=== PATIENT | female | born 1980 | race Caucasian/White ===

== ENCOUNTER → 2019-08-18 08:57 | Outpatient (POV) | payer SELFPAY | PROVIDERS: Visit Provider Dentist | DX: Z00.00 Encounter for general adult medical examination without abnormal findings (principal) ==

== ENCOUNTER → 2020-10-23 16:38 | Outpatient (CLI) | payer BC, SELFPAY ==
[2020-10-23 17:33] LABS: Alanine Aminotransferase 312 U/L (12-78); Albumin Level 4.1 g/dl (3.5-5.0); Albumin/Globulin Ratio 1.4 (1.1-1.8); Alkaline Phosphatase 219 U/L (38-126); Anion Gap 12.9 mEq/L (5-15); Aspartate Amino Transferase 303 U/L (14-36); Bilirubin,Total 0.5 mg/dl (0.2-1.3); Blood Urea Nitrogen 9 mg/dl (7-17); Calcium 10.4 mg/dl (8.4-10.2); Carbon Dioxide 32 mmol/L (22.0-30.0); Chloride 94 mmol/L (98-107); Chol/HDL Ratio 5.9 (1-3.5); Cholesterol 248 mg/dl (140-200); Estimated Glomerular Filt Rate 177 ml/min (>60); GFR (African American) 214 ML/MIN (>60); Glucose 283 mg/dl (74-100); HDL Cholesterol 42 mg/dl (40-60); Potassium 4.9 mmoL/L (3.5-5.1); Sodium 134 mmol/L (136-145); Total Protein,Serum 7.1 g/dl (6.3-8.2); Triglycerides 199 mg/dl (30-150); VLDL Cholesterol 40 mg/dL (0-40)
[2020-10-23 17:44] LABS: Direct LDL Cholesterol 183.41 mg/dL (100-129)
== END ==
PROVIDERS: Visit Provider Family Medicine
DX: K85.90 Acute pancreatitis without necrosis or infection, unspecified (principal)
CPT/HCPCS: 80053; 80061

== ENCOUNTER → 2020-12-03 13:33 | Outpatient (CLI) | payer BC, SELFPAY ==
[2020-12-03 15:53] LABS: Chloride 98 mmol/L (98-107); Potassium 4.6 mmoL/L (3.5-5.1); Sodium 134 mmol/L (136-145)
[2020-12-03 15:56] LABS: Alanine Aminotransferase 75 U/L (12-78); Albumin Level 3.7 g/dl (3.5-5.0); Albumin/Globulin Ratio 1.1 (1.1-1.8); Alkaline Phosphatase 193 U/L (38-126); Anion Gap 11.6 mEq/L (5-15); Aspartate Amino Transferase 181 U/L (14-36); Bilirubin,Total 0.4 mg/dl (0.2-1.3); Blood Urea Nitrogen 10 mg/dl (7-17); Calcium 9.9 mg/dl (8.4-10.2); Carbon Dioxide 29 mmol/L (22.0-30.0); Estimated Glomerular Filt Rate 137 ml/min (>60); GFR (African American) 165 ML/MIN (>60); Globulin 3.5 g/dL (1.3-3.2); Glucose 196 mg/dl (74-100); Total Protein,Serum 7.2 g/dl (6.3-8.2)
== END ==
PROVIDERS: Visit Provider Family Medicine
DX: R79.89 Other specified abnormal findings of blood chemistry (principal)
CPT/HCPCS: 80053

== ENCOUNTER → 2021-04-16 18:21 | Outpatient (CLI) | payer BC, SELFPAY ==
[2021-04-16 19:01] LABS: Chloride 102 mmol/L (98-107)
[2021-04-16 19:02] LABS: Potassium 4.6 mmoL/L (3.5-5.1); Sodium 139 mmol/L (136-145)
[2021-04-16 19:04] LABS: Alanine Aminotransferase 240 U/L (12-78); Aspartate Amino Transferase 688 U/L (14-36); Blood Urea Nitrogen 2 mg/dl (7-17); Estimated Glomerular Filt Rate 137 ml/min (>60); GFR (African American) 165 ML/MIN (>60)
[2021-04-16 19:05] LABS: Albumin Level 4.5 g/dl (3.5-5.0); Albumin/Globulin Ratio 1.3 (1.1-1.8); Alkaline Phosphatase 171 U/L (38-126); Anion Gap 16.6 mEq/L (5-15); Bilirubin,Total 0.7 mg/dl (0.2-1.3); Calcium 8.8 mg/dl (8.4-10.2); Carbon Dioxide 25 mmol/L (22.0-30.0); Globulin 3.4 g/dL (1.3-3.2); Glucose 177 mg/dl (74-100); Total Protein,Serum 7.9 g/dl (6.3-8.2)
== END ==
PROVIDERS: Visit Provider Family Medicine
DX: M79.7 Fibromyalgia (principal)
CPT/HCPCS: 80053

== ENCOUNTER → 2021-04-26 17:34 | Outpatient (CLI) | payer BC, SELFPAY ==
[2021-04-26 18:25] LABS: Basophils # 0.1 K/mm3 (0-0.2); Basophils % 0.7 % (0.1-2.0); Eosinophils # 0.2 K/mm3 (0.0-0.4); Eosinophils % 2.4 % (0.1-12.0); Hematocrit 40.9 % (37.0-47.0); Hemoglobin 13.7 g/dL (12.2-16.2); Lymphocytes # 1.8 K/mm3 (0.7-4.5); Lymphocytes % 24.8 % (10-50); Mean Corpuscular HGB Conc 33.4 g/dL (31.8-35.4); Mean Corpuscular Hemoglobin 34.1 pg (27.0-31.2); Mean Corpuscular Volume 102.1 fl (81-99); Mean Platelet Volume 11.9 fl (7.4-10.4); Monocytes # 0.7 K/mm3 (0.1-1.0); Monocytes % 10.2 % (1.7-9.3); Neutrophils # 4.5 K/mm3 (1.8-7.8); Neutrophils % 61.9 % (37.0-80.0); Platelet Count 134 K/mm3 (142-424); Red Blood Count 4.01 M/mm3 (4.20-5.40); Red Cell Distribution Width 14.2 % (11.5-17.5); White Blood Count 7.2 K/mm3 (4.8-10.8)
[2021-04-26 18:54] LABS: Alanine Aminotransferase 113 U/L (12-78); Albumin/Globulin Ratio 1.3 (1.1-1.8); Alkaline Phosphatase 119 U/L (38-126); Anion Gap 15.3 mEq/L (5-15); Aspartate Amino Transferase 221 U/L (14-36); Bilirubin,Total 1.1 mg/dl (0.2-1.3); Blood Urea Nitrogen 2 mg/dl (7-17); Calcium 9.3 mg/dl (8.4-10.2); Carbon Dioxide 23 mmol/L (22.0-30.0); Chloride 98 mmol/L (98-107); Estimated Glomerular Filt Rate 137 ml/min (>60); GFR (African American) 165 ML/MIN (>60); Glucose 111 mg/dl (74-100); Potassium 4.3 mmoL/L (3.5-5.1); Sodium 132 mmol/L (136-145)
[2021-04-26 19:43] LABS: Vitamin B12 981 pg/mL (239-931)
[2021-04-26 20:30] LABS: Iron 103 ug/dL (37-170)
[2021-04-28 12:47] LABS: Hep A Ab, IgM Negative (Negative); Hepatitis B Core Antibody IgM Negative (Negative); Hepatitis B Surface Antigen Negative (Negative); Hepatitis C Antibody <0.1 s/co ratio (0.0-0.9)
== END ==
PROVIDERS: Visit Provider Family Medicine
DX: K75.81 Nonalcoholic steatohepatitis (NASH) (principal); I10 Essential (primary) hypertension; E66.9 Obesity, unspecified; Z68.31 Body mass index [BMI] 31.0-31.9, adult
CPT/HCPCS: 80053; 80074; 82607; 83540; 85025

== ENCOUNTER 2021-06-10 13:03 | Emergency (ER) | payer BC, SELFPAY ==
[2021-06-10 13:04] VITALS: BP 120/80; PULSE 68; RESP 18; TEMP 37; O2SAT 100; BMI 32.0
--- NOTE | 2021-06-10 13:50 | CT_ITS ---
PROCEDURE: CT FACIAL BONES W CON CLINICAL HISTORY: facial abscess Left upper tooth abscess, severe pain COMPARISON: No exams were available for comparison TECHNIQUE: Axial images obtained with sagittal and coronal reformats. All CT scans at the facility use one or more dose reduction, viz: automated exposure control, ma/kV adjustment per patient size (including targeted exams where dose is matched to indication, i.e. head), or iterative reconstruction technique. FINDINGS: Extensive artifact is present from patient's dental work. Soft tissue swelling is present along the left maxillary region. There is a small fluid collection with small peripheral rim just superficial to the lower aspect of the left maxilla anterior laterally. Fluid collection measures 17 x 14 mm and a 7 mm thick consistent with an abscess. There is a small periapical abscess at this area involving a left maxillary premolar. In addition there is a large caries involving the left maxillary 1st molar. There is mucosal thickening involving the maxillary sinus on the left which is mild in nature. No sinus air-fluid level apparent. Scattered small nodes are present in the neck. IMPRESSION: Left-sided facial abscess in the maxillary region. The abscess is just superficial to the bone. There does not appear to be any osteomyelitis. There is a small periapical abscess involving the left premolar and a prominent caries involving the left 1st molar at this area. Dictated by: John Whyte MD 06/10/2021 15:08 John Whyte MD in [place] 06/10/2021 15:08
--- NOTE | 2021-06-10 13:58 | HMH.EDGENADL ---
ED Disposition Clinical Impression: Periapical abscess Disposition: Home, Self-Care Condition on Discharge: Good Additional Instructions: Take Tylenol and ibuprofen as needed for pain relief and fever reduction Please take antibiotics as prescribed If you develop a fever, worsening pain, redness to the skin over the cheek or up towards your eye please return to the ED immediately for further evaluation Please call [phone] to schedule outpatient follow up with Dr. Lance Arguello for further dental work Prescriptions: Amoxicillin/Potassium Clav [Augmentin 875-125 Tablet] 1 tab PO Q12H 7 Days #14 tab Prescription Printed Sulfamethoxazole/Trimethoprim [Bactrim DS tablet] 1 each PO BID 7 Days #14 tab Prescription Printed Oxycodone HCl [Oxycodone 5mg tab (IR)] 5 mg PO Q6H PRN #3 tab PRN Reason: Moderate To Severe Pain Prescription Printed Referrals: Rom Caldera MD [Primary Care Provider] - Lance Arguello [Referring] - - Critical Care Critical Care Time: No Attestation: On 06/10/21, the high probability of a clinically significant, sudden or life threatening deterioration of the following system(s) required my full and direct attention, intervention and personal management. The time I documented below is in addition to time spent performing reported procedures but includes the following listed in this critical care notation. Medical Decision Making - Medical Records Medical records reviewed: Yes: I reviewed the patient's medical records. - Jason Inquiry Pt receiving controlled substance: No Vital Signs: 06/10/21 13:04 Temperature 98.6 F Temperature Source Oral Pulse Rate [Right] 68 Respiratory Rate 18 Blood Pressure [Right Arm] 120/80 Blood Pressure Mean [Right Arm] 93 02 Sat by Pulse Oximetry 100 Oxygen Delivery Method Room Air - Lab Data Lab Results 06/10/21 14:20: WBC 11.4 H, RBC 4.59, Hgb 14.7, Hct 43.3, MCV 94.3, MCH 32.0 H, MCHC 34.0, RDW 13.3, Plt Count 301, MPV 8.5, Neut % (Auto) 62.8, Lymph % (Auto) 24.4, [place] % (Auto) 7.0, Eos % (Auto) 4.2, Baso % (Auto) 1.5, Neut # (Auto) 7.2, Lymph # (Auto) 2.8, [place] # (Auto) 0.8, Eos # (Auto) 0.5 H, Baso # (Auto) 0.2 06/10/21 14:20: Sodium 133 L, Potassium 5.0, Chloride 98, Carbon Dioxide 27, Anion Gap 13.0, BUN 6 L, Creatinine 0.60, Estimated Creat Clear 156, Estimated GFR 111, Est GFR ( Amer) 134, Glucose 158 H, Calcium 9.9, Total Bilirubin 0.4, AST 39 H, ALT 29, Alkaline Phosphatase 168 H, Total Protein 8.4 H, Albumin 4.7, Globulin 3.7 H, Albumin/Globulin Ratio 1.3 Result diagrams: 06/10/21 14:20 06/10/21 14:20 Orders (Tests/Meds): ED MEDICATIONS Discontinued Medications Generic Name Dose Route Start Last Admin Trade Name Freq PRN Reason Stop Dose Admin Iopamidol 75 ml 06/10/21 14:34 06/10/21 14:35 Iopamidol-370 (76%);100ml Bottle IV 06/10/21 14:35 75 ml ONCE ONE Administration Lidocaine HCl 15 ml 06/10/21 13:36 06/10/21 13:37 Lidocaine 2% Viscous Giovanna 15ml Udc PO 06/10/21 13:37 15 ml ONCE ONE Administration Sodium Chloride 10 ml 06/10/21 14:34 06/10/21 14:35 Sodium Chloride 0.9% 10ml Syr (Rad Only) IV 06/10/21 14:35 10 ml ONCE ONE Administration Medical Decision Narrative: Upon presentation, patient is hemodynamically stable and nontoxic, but uncomfortable appearing. Patient presents with a left periapical abscess. I performed an I&D of the left periapical abscess which only expressed blood. Patient continues to have pain in her cheek, concern for facial abscess. Patient does not have any erythema or warmth to the skin, making facial cellulitis less likely. Basic labs including CBC, CMP were obtained. CT face was ordered. Patient was found to have a minimally elevated white blood cell count. CT face demonstrated a left maxillary abscess that is superficial to bone. Patient does not have osteomyelitis. Patient's vital signs are hemodynamically stable. Patient does not have signs
--- NOTE | 2021-06-10 14:27 | PC.NURSE ---
patient to CT
[2021-06-10 14:33] LABS: Basophils # 0.2 K/mm3 (0-0.2); Basophils % 1.5 % (0.1-2.0); Eosinophils # 0.5 K/mm3 (0.0-0.4); Eosinophils % 4.2 % (0.1-12.0); Hematocrit 43.3 % (37.0-47.0); Hemoglobin 14.7 g/dL (12.2-16.2); Lymphocytes # 2.8 K/mm3 (0.7-4.5); Lymphocytes % 24.4 % (10-50); Mean Corpuscular Volume 94.3 fl (81-99); Mean Platelet Volume 8.5 fl (7.4-10.4); Monocytes # 0.8 K/mm3 (0.1-1.0); Neutrophils # 7.2 K/mm3 (1.8-7.8); Neutrophils % 62.8 % (37.0-80.0); Platelet Count 301 K/mm3 (142-424); Red Blood Count 4.59 M/mm3 (4.20-5.40); Red Cell Distribution Width 13.3 % (11.5-17.5); White Blood Count 11.4 K/mm3 (4.8-10.8)
[2021-06-10 14:37] LABS: Chloride 98 mmol/L (98-107); Sodium 133 mmol/L (136-145)
[2021-06-10 14:39] LABS: Blood Urea Nitrogen 6 mg/dl (7-17); Creatinine Clearance Estimated 156 mL/min (50-200); Estimated Glomerular Filt Rate 111 ml/min (>60); GFR (African American) 134 ML/MIN (>60)
[2021-06-10 14:40] LABS: Alanine Aminotransferase 29 U/L (12-78); Albumin Level 4.7 g/dl (3.5-5.0); Albumin/Globulin Ratio 1.3 (1.1-1.8); Alkaline Phosphatase 168 U/L (38-126); Aspartate Amino Transferase 39 U/L (14-36); Bilirubin,Total 0.4 mg/dl (0.2-1.3); Calcium 9.9 mg/dl (8.4-10.2); Carbon Dioxide 27 mmol/L (22.0-30.0); Globulin 3.7 g/dL (1.3-3.2); Glucose 158 mg/dl (74-100); Total Protein,Serum 8.4 g/dl (6.3-8.2)
--- NOTE | 2021-06-10 14:56 | PC.NURSE ---
Spoke with Kristin in rad about delay on reports of CT, she was going to speak with Dr Whyte about it.
[2021-06-10 16:04] VITALS: BP 123/88; PULSE 72; RESP 18; TEMP 36.7; O2SAT 98
== END 2021-06-10 16:06 | disposition home or self-care (01) ==
PROVIDERS: Emergency Provider Emergency Medicine; PCP Family Medicine
DX: K04.7 Periapical abscess without sinus (principal); I10 Essential (primary) hypertension; F41.8 Other specified anxiety disorders; F17.210 Nicotine dependence, cigarettes, uncomplicated
CPT/HCPCS: 40800; 70487; 80053; 85025; 99283; Q9967

== ENCOUNTER → 2021-09-16 20:55 | Outpatient (CLI) | payer BC, SELFPAY ==
[2021-09-16 21:06] LABS: Basophils # 0.1 K/mm3 (0-0.2); Basophils % 0.9 % (0.1-2.0); Eosinophils # 0.3 K/mm3 (0.0-0.4); Eosinophils % 2.7 % (0.1-12.0); Hematocrit 44.4 % (37.0-47.0); Hemoglobin 14.7 g/dL (12.2-16.2); Lymphocytes # 3.6 K/mm3 (0.7-4.5); Lymphocytes % 29.6 % (10-50); Mean Corpuscular Hemoglobin 31.5 pg (27.0-31.2); Mean Corpuscular Volume 95.6 fl (81-99); Mean Platelet Volume 10.4 fl (7.4-10.4); Monocytes # 0.9 K/mm3 (0.1-1.0); Monocytes % 7.7 % (1.7-9.3); Neutrophils # 7.1 K/mm3 (1.8-7.8); Neutrophils % 59.2 % (37.0-80.0); Platelet Count 326 K/mm3 (142-424); Red Blood Count 4.64 M/mm3 (4.20-5.40); Red Cell Distribution Width 13.2 % (11.5-17.5); White Blood Count 12.1 K/mm3 (4.8-10.8)
[2021-09-16 21:11] LABS: Chloride 101 mmol/L (98-107); Potassium 4.5 mmoL/L (3.5-5.1); Sodium 133 mmol/L (136-145)
[2021-09-16 21:13] LABS: Alanine Aminotransferase 34 U/L (12-78); Blood Urea Nitrogen 5 mg/dl (7-17); Estimated Glomerular Filt Rate 136 ml/min (>60); GFR (African American) 165 ML/MIN (>60)
[2021-09-16 21:14] LABS: Albumin Level 4.7 g/dl (3.5-5.0); Albumin/Globulin Ratio 1.6 (1.1-1.8); Alkaline Phosphatase 105 U/L (38-126); Anion Gap 16.5 mEq/L (5-15); Aspartate Amino Transferase 39 U/L (14-36); Bilirubin,Total 0.2 mg/dl (0.2-1.3); Calcium 10.4 mg/dl (8.4-10.2); Carbon Dioxide 20 mmol/L (22.0-30.0); Glucose 156 mg/dl (74-100); Lipase 89 U/L (23-300); Total Protein,Serum 7.7 g/dl (6.3-8.2)
[2021-09-16 23:06] LABS: Barbiturates Screen,Urine Negative ng/ml (<200)
[2021-09-16 23:07] LABS: Benzodiazepines Screen,Urine Negative ng/ml (<200)
[2021-09-16 23:08] LABS: Cannabinoid Screen,Urine Positive ng/ml (<50)
[2021-09-16 23:09] LABS: Cocaine Screen,Urine Negative ng/ml (<300); Methadone Screen,Urine Negative ng/ml (<300)
[2021-09-16 23:10] LABS: Opiate Screen,Urine Negative ng/ml (<300)
[2021-09-16 23:11] LABS: Phencyclidine Screen,Urine Negative ng/ml (<25)
[2021-09-16 23:15] LABS: Amphetamine/Metha Screen,Urine Negative ng/ml (<1000)
== END ==
PROVIDERS: Visit Provider Family Medicine
DX: F10.20 Alcohol dependence, uncomplicated (principal)
CPT/HCPCS: 80053; 80305; 83690; 85025

== ENCOUNTER → 2021-10-24 13:56 | Outpatient (CLI) | payer BC, SELFPAY ==
[2021-10-24 14:27] LABS: Amphetamine/Metha Screen,Urine Negative ng/ml (<1000)
[2021-10-24 14:28] LABS: Barbiturates Screen,Urine Negative ng/ml (<200)
[2021-10-24 14:29] LABS: Benzodiazepines Screen,Urine Negative ng/ml (<200)
[2021-10-24 14:30] LABS: Cannabinoid Screen,Urine Positive ng/ml (<50); Cocaine Screen,Urine Negative ng/ml (<300)
[2021-10-24 14:31] LABS: Methadone Screen,Urine Negative ng/ml (<300)
[2021-10-24 14:32] LABS: Opiate Screen,Urine Negative ng/ml (<300); Phencyclidine Screen,Urine Negative ng/ml (<25)
== END ==
PROVIDERS: Visit Provider Family Medicine
DX: Z79.899 Other long term (current) drug therapy (principal)
CPT/HCPCS: 80305

== ENCOUNTER → 2021-11-29 17:12 | Outpatient (CLI) | payer BC, SELFPAY ==
[2021-11-29 18:54] LABS: Amphetamine/Metha Screen,Urine Negative ng/ml (<1000); Barbiturates Screen,Urine Negative ng/ml (<200)
[2021-11-29 18:55] LABS: Benzodiazepines Screen,Urine Negative ng/ml (<200)
[2021-11-29 18:56] LABS: Cannabinoid Screen,Urine Positive ng/ml (<50); Cocaine Screen,Urine Negative ng/ml (<300)
[2021-11-29 18:57] LABS: Methadone Screen,Urine Negative ng/ml (<300); Opiate Screen,Urine Negative ng/ml (<300)
[2021-11-29 18:58] LABS: Phencyclidine Screen,Urine Negative ng/ml (<25)
== END ==
PROVIDERS: Visit Provider Family Medicine
DX: Z79.899 Other long term (current) drug therapy (principal)
CPT/HCPCS: 80305

== ENCOUNTER → 2022-02-03 16:00 | Outpatient (CLI) | payer BC, SELFPAY ==
[2022-02-03 20:02] LABS: Alanine Aminotransferase 84 U/L (12-78); Albumin Level 4.5 g/dl (3.5-5.0); Albumin/Globulin Ratio 1.7 (1.1-1.8); Alkaline Phosphatase 103 U/L (38-126); Anion Gap 14.3 mEq/L (5-15); Aspartate Amino Transferase 66 U/L (14-36); Bilirubin,Total 0.4 mg/dl (0.2-1.3); Blood Urea Nitrogen 10 mg/dl (7-17); Calcium 9.2 mg/dl (8.4-10.2); Carbon Dioxide 20 mmol/L (22.0-30.0); Chloride 103 mmol/L (98-107); Estimated Glomerular Filt Rate 176 ml/min (>60); GFR (African American) 213 ML/MIN (>60); Globulin 2.6 g/dL (1.3-3.2); Glucose 147 mg/dl (74-100); Potassium 4.3 mmoL/L (3.5-5.1); Sodium 133 mmol/L (136-145); Total Protein,Serum 7.1 g/dl (6.3-8.2)
== END ==
PROVIDERS: Visit Provider Family Medicine
DX: R74.8 Abnormal levels of other serum enzymes (principal)
CPT/HCPCS: 80053

== ENCOUNTER → 2022-05-20 13:41 | Outpatient (CLI) | payer BC, SELFPAY ==
[2022-05-20 18:48] LABS: Alanine Aminotransferase 101 U/L (12-78); Albumin/Globulin Ratio 1.2 (1.1-1.8); Alkaline Phosphatase 116 U/L (38-126); Anion Gap 15.6 mEq/L (5-15); Aspartate Amino Transferase 140 U/L (14-36); Bilirubin,Total 0.4 mg/dl (0.2-1.3); Blood Urea Nitrogen 8 mg/dl (7-17); Calcium 8.8 mg/dl (8.4-10.2); Carbon Dioxide 21 mmol/L (22.0-30.0); Chloride 102 mmol/L (98-107); Estimated Glomerular Filt Rate 92 ml/min (>60); GFR (African American) 112 ML/MIN (>60); Globulin 3.3 g/dL (1.3-3.2); Glucose 161 mg/dl (74-100); Potassium 4.6 mmoL/L (3.5-5.1); Sodium 134 mmol/L (136-145); Total Protein,Serum 7.3 g/dl (6.3-8.2)
== END ==
PROVIDERS: PCP Family Medicine; Visit Provider Family Medicine
DX: M79.7 Fibromyalgia (principal)
CPT/HCPCS: 80053

== ENCOUNTER → 2022-09-19 02:35 | Outpatient (CLI) | payer BC, SELFPAY ==
[2022-09-19 18:33] LABS: Chloride 93 mmol/L (98-107); Potassium 5.3 mmoL/L (3.5-5.1); Sodium 132 mmol/L (136-145)
[2022-09-19 18:35] LABS: Alanine Aminotransferase 132 U/L (12-78); Aspartate Amino Transferase 284 U/L (14-36); Blood Urea Nitrogen 4 mg/dl (7-17); Estimated Glomerular Filt Rate 110 ml/min (>60); GFR (African American) 133 ML/MIN (>60)
[2022-09-19 18:36] LABS: Albumin Level 4.6 g/dl (3.5-5.0); Albumin/Globulin Ratio 1.5 (1.1-1.8); Alkaline Phosphatase 158 U/L (38-126); Anion Gap 19.3 mEq/L (5-15); Bilirubin,Total 1.1 mg/dl (0.2-1.3); Calcium 10.1 mg/dl (8.4-10.2); Carbon Dioxide 25 mmol/L (22.0-30.0); Globulin 3.1 g/dL (1.3-3.2); Glucose 166 mg/dl (74-100); Total Protein,Serum 7.7 g/dl (6.3-8.2)
== END ==
PROVIDERS: PCP Family Medicine; Visit Provider Family Medicine
DX: Z00.00 Encounter for general adult medical examination without abnormal findings (principal)
CPT/HCPCS: 80053

== ENCOUNTER → 2022-11-13 06:05 | Outpatient (CLI) | payer BC, SELFPAY ==
[2022-11-13 18:23] LABS: Chloride 96 mmol/L (98-107); Potassium 3.8 mmoL/L (3.5-5.1); Sodium 135 mmol/L (136-145)
[2022-11-13 18:26] LABS: Alanine Aminotransferase 98 U/L (12-78); Albumin Level 4.4 g/dl (3.5-5.0); Albumin/Globulin Ratio 1.3 (1.1-1.8); Alkaline Phosphatase 120 U/L (38-126); Anion Gap 16.8 mEq/L (5-15); Aspartate Amino Transferase 210 U/L (14-36); Bilirubin,Total 0.9 mg/dl (0.2-1.3); Blood Urea Nitrogen 3 mg/dl (7-17); Calcium 8.9 mg/dl (8.4-10.2); Carbon Dioxide 26 mmol/L (22.0-30.0); Estimated Glomerular Filt Rate 110 ml/min (>60); GFR (African American) 133 ML/MIN (>60); Globulin 3.4 g/dL (1.3-3.2); Glucose 150 mg/dl (74-100); Total Protein,Serum 7.8 g/dl (6.3-8.2)
== END ==
PROVIDERS: PCP Family Medicine; Visit Provider Family Medicine
DX: M79.7 Fibromyalgia (principal)
CPT/HCPCS: 80053

== ENCOUNTER → 2022-12-30 16:23 | Outpatient (CLI) | payer BC, SELFPAY ==
[2022-12-30 16:12] LABS: Alanine Aminotransferase 58 U/L (12-78); Albumin Level 4.3 g/dl (3.5-5.0); Albumin/Globulin Ratio 1.2 (1.1-1.8); Alkaline Phosphatase 210 U/L (38-126); Anion Gap 10.3 mEq/L (5-15); Aspartate Amino Transferase 107 U/L (14-36); Bilirubin,Total 0.6 mg/dl (0.2-1.3); Blood Urea Nitrogen 3 mg/dl (7-17); Calcium 9.2 mg/dl (8.4-10.2); Carbon Dioxide 28 mmol/L (22.0-30.0); Chloride 98 mmol/L (98-107); Estimated Glomerular Filt Rate 110 ml/min (>60); GFR (African American) 133 ML/MIN (>60); Globulin 3.5 g/dL (1.3-3.2); Glucose 270 mg/dl (74-100); Potassium 5.3 mmoL/L (3.5-5.1); Sodium 131 mmol/L (136-145); Total Protein,Serum 7.8 g/dl (6.3-8.2)
== END ==
PROVIDERS: PCP Family Medicine; Visit Provider Family Medicine
DX: I10 Essential (primary) hypertension (principal)
CPT/HCPCS: 80053

== ENCOUNTER → 2023-04-25 09:40 | Outpatient (CLI) | payer BC, SELFPAY ==
[2023-04-24 17:41] LABS: Chloride 94 mmol/L (98-107); Potassium 4.5 mmoL/L (3.5-5.1); Sodium 136 mmol/L (136-145)
[2023-04-24 17:42] LABS: Basophils # 0.1 K/mm3 (0-0.2); Basophils % 0.8 % (0.1-2.0); Eosinophils # 0.3 K/mm3 (0.0-0.4); Eosinophils % 2.9 % (0.1-12.0); Hematocrit 41.1 % (37.0-47.0); Hemoglobin 12.9 g/dL (12.2-16.2); Lymphocytes # 2.7 K/mm3 (0.7-4.5); Lymphocytes % 31.2 % (10-50); Mean Corpuscular HGB Conc 31.4 g/dL (31.8-35.4); Mean Corpuscular Hemoglobin 29.2 pg (27.0-31.2); Mean Platelet Volume 9.5 fl (7.4-10.4); Monocytes # 0.8 K/mm3 (0.1-1.0); Monocytes % 8.8 % (1.7-9.3); Neutrophils # 4.9 K/mm3 (1.8-7.8); Neutrophils % 56.2 % (37.0-80.0); Platelet Count 388 K/mm3 (142-424); Red Blood Count 4.42 M/mm3 (4.20-5.40); Red Cell Distribution Width 16.4 % (11.5-17.5); White Blood Count 8.7 K/mm3 (4.8-10.8)
[2023-04-24 17:43] LABS: Blood Urea Nitrogen 6 mg/dl (7-17); Estimated Glomerular Filt Rate 110 ml/min (>60); GFR (African American) 133 ML/MIN (>60)
[2023-04-24 17:44] LABS: Alanine Aminotransferase 124 U/L (12-78); Albumin Level 4.9 g/dl (3.5-5.0); Albumin/Globulin Ratio 1.3 (1.1-1.8); Alkaline Phosphatase 153 U/L (38-126); Anion Gap 21.5 mEq/L (5-15); Aspartate Amino Transferase 185 U/L (14-36); Bilirubin,Total 0.3 mg/dl (0.2-1.3); Calcium 10.4 mg/dl (8.4-10.2); Carbon Dioxide 25 mmol/L (22.0-30.0); Globulin 3.7 g/dL (1.3-3.2); Glucose 135 mg/dl (74-100); Total Protein,Serum 8.6 g/dl (6.3-8.2)
[2023-04-24 18:21] LABS: Hemoglobin A1C 6.1 % (4.0-6.0)
== END ==
PROVIDERS: PCP Family Medicine; Visit Provider Family Medicine
DX: M79.7 Fibromyalgia (principal); Z79.899 Other long term (current) drug therapy
CPT/HCPCS: 80053; 83036; 85025

== ENCOUNTER → 2023-06-05 11:00 | Outpatient (CLI) | payer BC, SELFPAY ==
[2023-06-05 18:14] LABS: Alanine Aminotransferase 29 U/L (12-78); Albumin Level 4.8 g/dl (3.5-5.0); Albumin/Globulin Ratio 1.4 (1.1-1.8); Alkaline Phosphatase 140 U/L (38-126); Anion Gap 17.5 mEq/L (5-15); Aspartate Amino Transferase 36 U/L (14-36); Bilirubin,Total 0.2 mg/dl (0.2-1.3); Blood Urea Nitrogen 7 mg/dl (7-17); Calcium 10.3 mg/dl (8.4-10.2); Carbon Dioxide 26 mmol/L (22.0-30.0); Chloride 97 mmol/L (98-107); Estimated Glomerular Filt Rate 110 ml/min (>60); GFR (African American) 133 ML/MIN (>60); Globulin 3.5 g/dL (1.3-3.2); Glucose 158 mg/dl (74-100); Potassium 4.5 mmoL/L (3.5-5.1); Sodium 136 mmol/L (136-145); Total Protein,Serum 8.3 g/dl (6.3-8.2)
== END ==
PROVIDERS: PCP Family Medicine; Visit Provider Family Medicine
DX: F10.10 Alcohol abuse, uncomplicated (principal)
CPT/HCPCS: 80053

== ENCOUNTER → 2023-10-09 08:29 | Outpatient (CLI) | payer BC, SELFPAY ==
[2023-10-09 18:10] LABS: MANUAL DIFFERENTIAL MANUAL DIFFERENTIAL (MANUAL DIFF)
[2023-10-09 18:28] LABS: Alanine Aminotransferase 28 U/L (12-78); Albumin Level 4.3 g/dl (3.5-5.0); Albumin/Globulin Ratio 1.5 (1.1-1.8); Alkaline Phosphatase 87 U/L (38-126); Anion Gap 15.4 mEq/L (5-15); Aspartate Amino Transferase 35 U/L (14-36); Bilirubin,Total 0.5 mg/dl (0.2-1.3); Blood Urea Nitrogen 13 mg/dl (7-17); Calcium 9.5 mg/dl (8.4-10.2); Carbon Dioxide 25 mmol/L (22.0-30.0); Chloride 95 mmol/L (98-107); Chol/HDL Ratio 5.5 (1-3.5); Cholesterol 192 mg/dl (140-200); Estimated Glomerular Filt Rate 109 ml/min (>60); GFR (African American) 132 ML/MIN (>60); Globulin 2.9 g/dL (1.3-3.2); Glucose 137 mg/dl (74-100); HDL Cholesterol 35 mg/dl (40-60); Potassium 4.4 mmoL/L (3.5-5.1); Sodium 131 mmol/L (136-145); Total Protein,Serum 7.2 g/dl (6.3-8.2); Triglycerides 111 mg/dl (30-150); VLDL Cholesterol 22 mg/dL (0-40)
[2023-10-09 18:29] LABS: Basophils # 0.1 K/mm3 (0-0.2); Basophils % 0.8 % (0.1-2.0); Eosinophils # 0.3 K/mm3 (0.0-0.4); Eosinophils % 2.4 % (0.1-12.0); Hematocrit 35.1 % (37.0-47.0); Hemoglobin 11.8 g/dL (12.2-16.2); Lymphocytes # 2.8 K/mm3 (0.7-4.5); Lymphocytes % 26.7 % (10-50); Mean Corpuscular HGB Conc 33.6 g/dL (31.8-35.4); Mean Corpuscular Hemoglobin 27.6 pg (27.0-31.2); Mean Corpuscular Volume 82.3 fl (81-99); Mean Platelet Volume 8.9 fl (7.4-10.4); Monocytes # 0.5 K/mm3 (0.1-1.0); Monocytes % 4.7 % (1.7-9.3); Neutrophils # 6.9 K/mm3 (1.8-7.8); Neutrophils % 65.4 % (37.0-80.0); Platelet Count 418 K/mm3 (142-424); Red Blood Count 4.26 M/mm3 (4.20-5.40); Red Cell Distribution Width 16.2 % (11.5-17.5); White Blood Count 10.5 K/mm3 (4.8-10.8)
[2023-10-09 18:33] LABS: Amphetamine/Metha Screen,Urine Negative ng/ml (<1000)
[2023-10-09 18:34] LABS: Barbiturates Screen,Urine Negative ng/ml (<200)
[2023-10-09 18:35] LABS: Benzodiazepines Screen,Urine Negative ng/ml (<200); Cannabinoid Screen,Urine Positive ng/ml (<50)
[2023-10-09 18:36] LABS: Cocaine Screen,Urine Negative ng/ml (<300); Methadone Screen,Urine Negative ng/ml (<300)
[2023-10-09 18:37] LABS: Opiate Screen,Urine Negative ng/ml (<300)
[2023-10-09 18:38] LABS: Phencyclidine Screen,Urine Negative ng/ml (<25)
[2023-10-09 18:39] LABS: Direct LDL Cholesterol 130.69 mg/dL (100-129)
[2023-10-09 19:20] LABS: Vitamin B12 550 pg/mL (239-931)
[2023-10-09 19:37] LABS: Eosinophils % 1 % (0-3); Lymphocytes % 26 % (10-50); Monocytes % 2 % (2-9); Neutrophils % 71 % (42-76); Platelet Estimate Normal; RBC Morphology Normal; Total Cells Counted 100
== END ==
PROVIDERS: PCP Family Medicine; Visit Provider Family Medicine
DX: F43.10 Post-traumatic stress disorder, unspecified (principal); E66.9 Obesity, unspecified; Z68.30 Body mass index [BMI] 30.0-30.9, adult; Z79.899 Other long term (current) drug therapy
CPT/HCPCS: 80053; 80061; 80305; 82607; 83036; 85007; 85014; 85018; 85048; 85049

== ENCOUNTER → 2023-10-23 23:30 | Outpatient (CLI) | payer BC, SELFPAY ==
[2023-10-23 19:06] LABS: Amphetamine/Metha Screen,Urine Negative ng/ml (<1000); Benzodiazepines Screen,Urine Negative ng/ml (<200)
[2023-10-23 19:07] LABS: Cannabinoid Screen,Urine Positive ng/ml (<50); Methadone Screen,Urine Negative ng/ml (<300)
[2023-10-23 19:08] LABS: Alanine Aminotransferase 24 U/L (12-78); Albumin Level 4.5 g/dl (3.5-5.0); Albumin/Globulin Ratio 1.3 (1.1-1.8); Alkaline Phosphatase 133 U/L (38-126); Anion Gap 12.9 mEq/L (5-15); Aspartate Amino Transferase 35 U/L (14-36); Bilirubin,Total 0.3 mg/dl (0.2-1.3); Blood Urea Nitrogen 13 mg/dl (7-17); Calcium 9.2 mg/dl (8.4-10.2); Carbon Dioxide 21 mmol/L (22.0-30.0); Chloride 100 mmol/L (98-107); Cocaine Screen,Urine Negative ng/ml (<300); Estimated Glomerular Filt Rate 91 ml/min (>60); GFR (African American) 111 ML/MIN (>60); Globulin 3.4 g/dL (1.3-3.2); Glucose 102 mg/dl (74-100); Potassium 4.9 mmoL/L (3.5-5.1); Sodium 129 mmol/L (136-145); Total Protein,Serum 7.9 g/dl (6.3-8.2)
[2023-10-23 19:09] LABS: Phencyclidine Screen,Urine Negative ng/ml (<25)
[2023-10-23 19:11] LABS: Opiate Screen,Urine Negative ng/ml (<300)
[2023-10-23 19:21] LABS: Barbiturates Screen,Urine Negative ng/ml (<200)
== END ==
PROVIDERS: PCP Family Medicine; Visit Provider Family Medicine
DX: Z79.899 Other long term (current) drug therapy (principal); Z09 Encounter for follow-up examination after completed treatment for conditions other than malignant neoplasm
CPT/HCPCS: 80053; 80305

== ENCOUNTER 2024-04-06 19:27 | Outpatient (CLI) | payer BC, SELFPAY ==
[2024-04-06 21:12] LABS: Erythrocyte Sedimentation Rate 18 mm/hr (0-20)
[2024-04-06 21:30] LABS: Alanine Aminotransferase 32 U/L (12-78); Albumin Level 4.6 g/dl (3.5-5.0); Albumin/Globulin Ratio 1.5 (1.1-1.8); Alkaline Phosphatase 138 U/L (38-126); Anion Gap 18.7 mEq/L (5-15); Aspartate Amino Transferase 38 U/L (14-36); Bilirubin,Total 0.3 mg/dl (0.2-1.3); Blood Urea Nitrogen 18 mg/dl (7-17); Calcium 9.2 mg/dl (8.4-10.2); Carbon Dioxide 22 mmol/L (22.0-30.0); Chloride 89 mmol/L (98-107); Estimated Glomerular Filt Rate 91 ml/min (>60); GFR (African American) 111 ML/MIN (>60); Glucose 101 mg/dl (74-100); Potassium 4.7 mmoL/L (3.5-5.1); Sodium 125 mmol/L (136-145); Total Protein,Serum 7.6 g/dl (6.3-8.2)
[2024-04-06 21:34] LABS: Hemoglobin A1C 6.6 % (4.0-6.0)
[2024-04-06 21:48] LABS: 25-OH Vitamin D, Total 60.2 ng/mL (30-100)
[2024-04-06 22:06] LABS: Iron 42 ug/dL (37-170)
[2024-04-06 22:12] LABS: C-Reactive Protein 4.7 mg/L (0-4)
[2024-04-06 22:18] LABS: Total Iron Binding Capacity 508 ug/dL (265-497)
[2024-04-06 22:23] LABS: Vitamin B12 670 pg/mL (239-931)
[2024-04-08 15:05] LABS: Anti-Centromere B Antibodies <0.2 AI (0.0-0.9); Anti-DNA (DS) Ab Qn <1 IU/mL (0-9); Anti-Jo-1 <0.2 AI (0.0-0.9); Antichromatin Antibodies <0.2 AI (0.0-0.9); Antiscleroderma-70 Antibodies <0.2 AI (0.0-0.9); RNP Antibodies <0.2 AI (0.0-0.9); Sjogren's Anti-SS-A 1.4 AI (0.0-0.9); Sjogren's Anti-SS-B <0.2 AI (0.0-0.9)
[2024-04-10 08:55] LABS: Anti-Centromere B Abs Charge YES; Anti-DNA (DS) Ab Charge YES; Anti-Jo-1 Charge YES; Antichromatin Abs Charge YES; Antinuclear Antibodies (ANA) Positive; Antiscleroderma-70 Abs Charge YES; RNP Antibodies Charge YES; Sjogren's Anti-SS-A Ab Charge YES; Sjogren's Anti-SS-B Ab Charge YES; Smith Antibodies Charge YES
== END 2024-04-06 23:59 | disposition home or self-care (01) ==
LOC: LAB.DROPOF 19:28
PROVIDERS: PCP Family Medicine; Visit Provider Family Medicine
DX: L65.9 Nonscarring hair loss, unspecified (principal); R53.83 Other fatigue; M79.7 Fibromyalgia; G47.00 Insomnia, unspecified; L40.9 Psoriasis, unspecified; R73.09 Other abnormal glucose; E66.9 Obesity, unspecified; Z68.35 Body mass index [BMI] 35.0-35.9, adult
CPT/HCPCS: 80053; 82306; 82607; 83036; 83540; 83550; 84443; 85651; 86038; 86140; 86225; 86235

== ENCOUNTER 2024-04-18 18:00 | Outpatient (CLI) | payer BC, SELFPAY ==
[2024-04-18 18:28] LABS: Chloride 99 mmol/L (98-107)
[2024-04-18 18:29] LABS: Potassium 4.7 mmoL/L (3.5-5.1)
[2024-04-18 18:31] LABS: Alanine Aminotransferase 34 U/L (12-78); Aspartate Amino Transferase 69 U/L (14-36)
[2024-04-18 18:32] LABS: Albumin Level 4.7 g/dl (3.5-5.0); Albumin/Globulin Ratio 1.6 (1.1-1.8); Alkaline Phosphatase 114 U/L (38-126); Bilirubin,Total 0.5 mg/dl (0.2-1.3); Calcium 9.8 mg/dl (8.4-10.2); Carbon Dioxide 21 mmol/L (22.0-30.0); Globulin 2.9 g/dL (1.3-3.2); Glucose 133 mg/dl (74-100); Total Protein,Serum 7.6 g/dl (6.3-8.2)
[2024-04-18 18:53] LABS: Anion Gap 14.7 mEq/L (5-15); Blood Urea Nitrogen 11 mg/dl (7-17); Estimated Glomerular Filt Rate 91 ml/min (>60); GFR (African American) 111 ML/MIN (>60); Sodium 130 mmol/L (136-145)
== END 2024-04-18 23:59 | disposition home or self-care (01) ==
LOC: LAB.DROPOF 04-19 10:14
PROVIDERS: PCP Family Medicine; Visit Provider Family Medicine
DX: I10 Essential (primary) hypertension (principal); F17.200 Nicotine dependence, unspecified, uncomplicated; F10.20 Alcohol dependence, uncomplicated
CPT/HCPCS: 80053

== ENCOUNTER 2024-05-20 18:33 | Outpatient (CLI) | payer BC, SELFPAY ==
[2024-05-20 18:43] LABS: Adenovirus F 40/41, stool Not Detected (NotDetected); Astrovirus Not Detected (NotDetected); Campylobacter Not Detected (NotDetected); Cryptosporidium Not Detected (NotDetected); Cyclospora Cayetanesis Not Detected (NotDetected); Entamoeba histolytica Not Detected (NotDetected); Enteroaggregative E coli Not Detected (NotDetected); Enteropathogenic E coli Not Detected (NotDetected); Enterotoxigenic E coli Not Detected (NotDetected); Giardia lamblia Not Detected (NotDetected); Norovirus Not Detected (NotDetected); Plesimonas Shigalloides, PCR Not Detected (NotDetected); Rotavirus A Not Detected (NotDetected); Salmonella, PCR Not Detected (NotDetected); Sapovirus Not Detected (NotDetected); Shiga-like toxin E coli Not Detected (NotDetected); Shigella Enterovasive E coli Not Detected (NotDetected); Vibrio Cholerae Not Detected (NotDetected); Vibrio, PCR Not Detected (NotDetected); Yersinia Entercolitica, PCR Not Detected (NotDetected)
[2024-05-24 11:22] LABS: Clostridium Difficile A/B, PCR Detected (NotDetected)
== END 2024-05-20 23:59 | disposition home or self-care (01) ==
LOC: LAB.DROPOF 18:34
PROVIDERS: PCP Nurse Practitioner; Visit Provider Nurse Practitioner
DX: R19.5 Other fecal abnormalities (principal); B83.9 Helminthiasis, unspecified
CPT/HCPCS: 87045; 87177; 87507

== ENCOUNTER 2024-06-10 11:35 | Outpatient (CLI) | payer BC, SELFPAY ==
[2024-06-10 18:25] LABS: Albumin Level 4.3 g/dl (3.5-5.0); Albumin/Globulin Ratio 1.4 (1.1-1.8); Alkaline Phosphatase 81 U/L (38-126); Bilirubin,Total 0.3 mg/dl (0.2-1.3); Blood Urea Nitrogen 13 mg/dl (7-17); Carbon Dioxide 22 mmol/L (22.0-30.0); Estimated Glomerular Filt Rate 61 ml/min (>60); GFR (African American) 73 ML/MIN (>60); Total Protein,Serum 7.3 g/dl (6.3-8.2)
[2024-06-10 18:26] LABS: Glucose 121 mg/dl (74-100)
[2024-06-10 18:27] LABS: Alanine Aminotransferase 41 U/L (12-78); Anion Gap 14.3 mEq/L (5-15); Aspartate Amino Transferase 52 U/L (14-36); Calcium 9.2 mg/dl (8.4-10.2); Chloride 103 mmol/L (98-107); Potassium 4.3 mmoL/L (3.5-5.1); Sodium 135 mmol/L (136-145)
== END 2024-06-10 23:59 | disposition home or self-care (01) ==
LOC: LAB.DROPOF 06-13 11:35
PROVIDERS: PCP Family Medicine; Visit Provider Family Medicine
DX: L40.50 Arthropathic psoriasis, unspecified (principal); I10 Essential (primary) hypertension; M79.7 Fibromyalgia
CPT/HCPCS: 80053

== ENCOUNTER 2024-07-21 09:16 | Outpatient (CLI) | payer BC, SELFPAY | END 2024-07-21 23:59 | disposition home or self-care (01) | LOC: LAB.DROPOF 07-22 13:04 | PROVIDERS: PCP Nurse Practitioner; Visit Provider Nurse Practitioner | DX: Z51.89 Encounter for other specified aftercare (principal); Z11.9 Encounter for screening for infectious and parasitic diseases, unspecified | CPT/HCPCS: 87070; 87177; 87205 ==

== ENCOUNTER 2024-08-01 14:23 | Outpatient (CLI) | payer BC, SELFPAY ==
[2024-08-01 20:40] LABS: Alanine Aminotransferase 28 U/L (12-78); Albumin Level 4.7 g/dl (3.5-5.0); Albumin/Globulin Ratio 1.7 (1.1-1.8); Alkaline Phosphatase 93 U/L (38-126); Aspartate Amino Transferase 34 U/L (14-36); Bilirubin,Total 0.4 mg/dl (0.2-1.3); Blood Urea Nitrogen 11 mg/dl (7-17); Calcium 9.7 mg/dl (8.4-10.2); Carbon Dioxide 23 mmol/L (22.0-30.0); Chloride 95 mmol/L (98-107); Estimated Glomerular Filt Rate 91 ml/min (>60); GFR (African American) 111 ML/MIN (>60); Globulin 2.7 g/dL (1.3-3.2); Glucose 107 mg/dl (74-100); Sodium 131 mmol/L (136-145); Total Protein,Serum 7.4 g/dl (6.3-8.2)
[2024-08-01 21:40] LABS: Anion Gap 17.3 mEq/L (5-15); Potassium 4.3 mmoL/L (3.5-5.1)
[2024-08-01 21:51] LABS: C-Reactive Protein 5.2 mg/L (0-4)
== END 2024-08-01 23:59 | disposition home or self-care (01) ==
LOC: LAB.DROPOF 08-02 10:15
PROVIDERS: PCP Family Medicine; Visit Provider Family Medicine
DX: Z51.89 Encounter for other specified aftercare (principal)
CPT/HCPCS: 80053; 86140

== ENCOUNTER 2024-09-01 07:28 | Day surgery (SDC) | payer BC, SELFPAY ==
[2024-08-30 11:26] VITALS: BMI 32.8
[2024-09-01 08:00] LABS: Urine Pregnancy, HCG Qual. Negative (Negative)
[2024-09-01 08:01] VITALS: BP 141/78; PULSE 69; RESP 18; TEMP 36.3; O2SAT 100
[2024-09-01] MEDS: LACTATED RINGERS 1000ML 1,000 ML 25 ML IV (08:13)
--- NOTE | 2024-09-01 08:23 | EXP.HP ---
History of Present Illness *Admission Date: 09/01/24 *Reason for visit:: Dyspepsia/bloating/generalized abdominal pain *History of present illness: Mrs. Powell is a 44-year-old female who is here for diagnostic panendoscopy. The patient reports epigastric and generalized abdominal pain, gassiness and bloating. She also has irregular bowel function with alternating constipation and diarrhea. She reports mucus with her bowel movements. She has never had EGD or colonoscopy. The examination is deemed medically necessary for panendoscopy. The patient has been seen, interviewed and examined prior to the procedure by both myself and the anesthesia provider. [facility] Disclaimer: The information contained in this section may have been updated after the patient was seen, as this information can be updated by other users. Medical History Encounter for screening for infectious and parasitic diseases, unspecified Worms in stool Insomnia Chronic post-traumatic stress disorder (PTSD) MDD (major depressive disorder), recurrent episode, moderate Generalized anxiety disorder with panic attacks Syncope Essential hypertension Psoriatic arthritis Alcoholism Psoriasis Fibromyalgia Mood disorder Asthma PTSD (post-traumatic stress disorder) History of miscarriage Obesity (BMI 30-39.9) Anxiety Surgical History H/O dilation and curettage Family History Father Alcoholism Family/Other FHx: mental illness Other Diabetes Social History Smoking Status: Current some day smoker (She smokes a vape pen some days.) tobacco type: e-cigarettes alcohol intake: former (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.) substance use type: marijuana current occupational status: unemployed and disabled (Keyanna is in the process of filing for disability for Arthritis, among other things.) Travel in the last 8 weeks: None household members: spouse and children housing: house number of children: 1 caffeine: Yes Other Medical History Have you received the Flu Vaccine for this season: No Have you received the Pneumonia Vaccine: No Review of Systems Review of Systems Review of systems (narrative): Negative *Cardiovascular Comments: Negative *Gastrointestinal Comments: Negative *Genitourinary Comments: Negative *Musculoskeletal Comments: Negative *Neurologic Comments: Negative Meds Home Medications and Allergies Home Medications ?Medication ?Instructions ?Recorded ?Confirmed ?Type albuterol sulfate 90 mcg/actuation 2 puff inhalation QID PRN 02/03/24 09/01/24 Rx aerosol inhaler shortness of breath or wheezing #8.5 grams levocetirizine 5 mg tablet (Xyzal) 5 mg PO DAILY #90 tabs 02/03/24 09/01/24 Rx potassium chloride 20 mEq 20 meq PO DAILY #90 tabs 02/03/24 09/01/24 Rx tablet,extended release ferrous sulfate 325 mg (65 mg 325 mg PO BID #60 tabs 04/18/24 09/01/24 Rx iron) tablet metoprolol tartrate 50 mg tablet See Rx Instructions .Route 05/05/24 09/01/24 Rx .COMPLEX #180 tabs vitamins with calcium 1 tab PO DAILY #30 tabs 05/09/24 09/01/24 Rx no.72-iron 29 mg-folic acid 1 mg tablet apremilast 30 mg tablet (Otezla) See Rx Instructions .Route 06/11/24 09/01/24 Rx .COMPLEX #180 tabs metformin 500 mg tablet See Rx Instructions .Route 07/04/24 09/01/24 Rx .COMPLEX #180 tabs duloxetine 30 mg capsule,delayed 30 mg PO BID #180 caps 07/29/24 09/01/24 Rx release (Cymbalta) gabapentin 800 mg tablet 800 mg PO TID #90 tabs 08/01/24 09/01/24 Rx hydroxyzine HCl 50 mg tablet 50 mg PO Q8H PRN itching #90 tabs 08/01/24 09/01/24 Rx lamotrigine 25 mg tablet (Lamictal) 50 mg (2 x 25 mg) PO DAILY #60 tabs 08/04/24 09/01/24 Rx ropinirole 4 mg tablet See Rx Instructions .Route 08/10/24 09/01/24 Rx .COMPLEX #90 tabs Lactobacillus rhamnosus GG 20 1 cap PO DAILY 30 days #30 caps 08/22/24 09/01/24 Rx billion cell-inulin 200 mg capsule (Probiotic Digestive Supp(L.rhamn,inuln)) doxycycline hyclate 100 mg tablet 100 mg PO BID #20 tabs 08/22/24 09/01/24 Rx lorazepam 1 mg tablet 1 mg PO DAILY PRN anxiety #30 tabs 08/26/24 09/01/24 Rx tizanidine 4 mg tablet 4 mg PO Q8H PRN muscle spasticity 08/29/24 09/01/24 Rx #90 tabs peg 3350-electrolytes 236 240 ml PO Q10M colonscopy #4,000 mL 08/30/24 Rx gram-22.74 gram-6.74 gram-5.86 gram solution (Golytely) New Prescriptions to Start Prescriptions: Allergies Allergy/AdvReac Type Severity Reaction Status Date / Time prednisone AdvReac Mild Irritable Verified 09/01/24 07:55 Exam Data for Last 24 hours Vital signs and Labs for Last 24 Hours: Temp Pulse Resp BP Pulse Ox O2 Del Method 97.4 F L 69 18 141/78 H 100 Room Air 09/01/24 08:01 09/01/24 08:01 09/01/24 08:01 09/01/24 08:01 09/01/24 08:01 09/01/24 08:01 Laboratory Results - last 24 hr 09/01/24 07:51: Urine HCG, Qual Negative I & O for Last 24 hours: Intake & Output 08/29/24 08/30/24 08/31/24 09/01/24 23:59 23:59 23:59 23:59 Weight 185 lb *Routine HEENT Exam Head: Present normocephalic Eye: Present EOMI and PERRL ENT: Present mucous membranes moist *Routine Neck Exam Neck: Present supple *Routine Respiratory Exam Respiratory: Present CTA bilaterally *Routine Cardiovascular Exam Cardiovascular: Present RRR *Routine Abdominal Exam Abdominal: Present soft and normoactive bowel sounds; Absent tenderness *Routine Rectal Exam Rectal:: deferred *Routine Genitalia Exam Genitalia:: deferred *Routine Extremities Exam Extremities: Absent cyanosis, clubbing or edema *Routine Skin Exam Skin: Present warm; Absent rash *Routine Neurological Exam Neurological: Present alert and oriented X3 Assessment and Plan *Assessment and plan (1) Dyspepsia: Status: Acute Category: Medical Code(s): R10.13 - Epigastric pain (2) Epigastric pain: Status: Acute Category: Medical Code(s): R10.13 - Epigastric pain (3) Bloating: Status: Acute Category: Medical Code(s): R14.0 - Abdominal distension (gaseous) (4) Irregular bowel habits: Status: Acute Category: Medical Code(s): R19.8 - Other specified symptoms and signs involving the digestive system and abdomen Plan A/P: 1. Abdominal pain, bloating and irregular bowel habits is the preprocedural diagnosis. The patient will be anesthetized/sedated using MAC sedation. The patient has been seen and examined. Cardiac and lung assessment prior to the examination is stable. Proceed with planned diagnostic panendoscopy
[2024-09-01 08:24] LABS: POC Glucose,Bedside 124 (70-110)
--- NOTE | 2024-09-01 08:27 | EXP.ANES.CKL ---
[facility] Disclaimer: The information contained in this section may have been updated after the patient was seen, as this information can be updated by other users. Medical History Encounter for screening for infectious and parasitic diseases, unspecified Worms in stool Insomnia Chronic post-traumatic stress disorder (PTSD) MDD (major depressive disorder), recurrent episode, moderate Generalized anxiety disorder with panic attacks Syncope Essential hypertension Psoriatic arthritis Alcoholism Psoriasis Fibromyalgia Mood disorder Asthma PTSD (post-traumatic stress disorder) History of miscarriage Obesity (BMI 30-39.9) Anxiety Surgical History H/O dilation and curettage Family History Father Alcoholism Family/Other FHx: mental illness Other Diabetes Social History Smoking Status: Current some day smoker (She smokes a vape pen some days.) tobacco type: e-cigarettes alcohol intake: former (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.) substance use type: marijuana current occupational status: unemployed and disabled (Keyanna is in the process of filing for disability for Arthritis, among other things.) Travel in the last 8 weeks: None household members: spouse and children housing: house number of children: 1 caffeine: Yes [facility] Anesthesia Checklist Patient Identification Patient Identification: Arm Band and Verbal (Name & ) Structural Data Admitted From: Home Planned Operative Procedure/s: EGD/Colonoscopy Consent for Planned Operative Procedure(s) Verified: Yes Verified Documents: Surgical Consent and History and Physical NPO Status Verified Time NPO: 04:00 (Black coffee) Chart Verification Results Verified: HCG Additional verifications Anesthesia Reactions: No Airway Assessment Mallampati Score:: Class II C-Spine Mobility Assessed: Yes TMJ Mobility Assessed: Yes Dentition: Good Dentition Neurological Assessment Level of Consciousness: Awake Hx Seizures: Yes Numbness or tingling in extremities: No Anesthesia Plan Anesthesia Risk discussed: Yes Anesthesia Plan: Verified ASA Class: II Anesthesia Type: MAC
[2024-09-01 09:02] VITALS: O2SAT 100
--- NOTE | 2024-09-01 09:16 | P.PCN_ITS ---
[facility] Procedure Note Date: 09/01/24 Time: 09:16 Procedure Note:: Upper Endoscopy Procedure Report: Esophagogastroduodenoscopy with cold biopsies Endoscopost: Blake Vera II, MD Referring Physician: Rom Caldera MD Date of Procedure: September 01, 2024 Equipment: Olympus GIF 190 standard upper endoscope Sedation: MAC sedation Indications: Mrs. Powell is a 44-year-old female who is here for diagnostic upper endoscopy secondary to epigastric and some generalized abdominal pain, bloating and gassiness. She has intermittent nausea and early satiety. She reports bowel irregularity with alternating diarrhea and constipation. She has never had an endoscopy. She reports no dysphagia or heartburn. She has had no weight loss, melena or hematochezia. She is not taking Protonix or PPI therapy. Procedure: Prior to the procedure, a history and physical exam was performed, and patient's medications and allergies were reviewed. The risks, benefits and alternatives of the sedation and procedure were discussed with the patient. All questions were answered and informed consent was obtained. The patient was brought to the procedure room. Patient identification and proposed procedure were verified by the physician and the nurse. The patient was placed in a left lateral decubitus position and the scope was passed under direct vision. Throughout the procedure, the patient's blood pressure, pulse, and oxygen saturations were monitored continuously. The upper GI endoscopy was accomplished without difficulty. The patient tolerated the procedure well. Findings: The scope was passed directly into the upper esophagus and advanced to the third portion of the duodenum. The post bulbar duodenum and duodenal bulb had patchy superficial small erosions and ulcerations within the post bulbar duodenum and bulb. Biopsies were obtained. There was no significant mucosal edema and this was possibly related to NSAIDs. The scope was withdrawn through a normal pylorus into the stomach. There was some mild bile reflux with mild linear reactive gastropathy of the antrum. There was very mild chronic gastritis of the body and fundus of the stomach. Upon retroflexion there was a small 1 to 2 cm sliding hiatal hernia. The scope was then withdrawn into the esophagus. There was no evidence of reflux esophagitis or Young's. There were tertiary contractions and evidence of mild esophageal dysmotility. The remainder of the esophageal mucosa was normal. Impression: 1. Nonerosive GERD with mild esophageal dysmotility and small 1 to 2 cm hiatal hernia 2. Mild reactive gastropathy of antrum and mild chronic gastritis 3. Patchy superficial small duodenal erosions/ulcerations Plan: I am going to recommend sucralfate and check biopsies especially for H. pylori. I would recommend [id number] Iberogast. I will inquire about NSAIDs. I will proceed with diagnostic colonoscopy.
--- NOTE | 2024-09-01 09:21 | HMH.PROCNOTE ---
[facility] Procedure Note Date: 09/01/24 Time: 09:21 Procedure Note:: Colonoscopy Procedure Report: Colonoscopy with cold snare polypectomy Endoscopist: Blake Vera II, MD Referring physician: Rom Caldera MD Date of Procedure: September 01, 2024 Equipment: Olympus 190 variable stiffness pediatric colonoscope Sedation: MAC sedation Indication: Mrs. Powell is a 44-year-old female who is here for diagnostic colonoscopy. The patient has had epigastric and generalized abdominal pain, intermittent nausea, fullness and bloating. The patient does have irregular bowel function with alternating constipation and diarrhea. She notes mucus with her bowel movements. She reports no rectal bleeding, weight loss or family history of colon cancer. This is her first colonoscopy. The patient mention worms/parasites and has used ivermectin. Procedure: Prior to the procedure, a history and physical exam was performed, and patient's medications and allergies were reviewed. The risks, benefits and alternatives of the sedation and procedure were discussed with the patient. All questions were answered and informed consent was obtained. The patient was brought to the procedure room. Patient identification and proposed procedure were verified by the physician and the nurse. The patient was placed in a left lateral decubitus position and the scope was passed under direct vision. Throughout the procedure, the patient's blood pressure, pulse, and oxygen saturations were monitored continuously. The colonoscopy was accomplished without difficulty. The patient tolerated the procedure well. Findings: On digital rectal examination there was normal rectal tone. There were no external hemorrhoids. The colonoscope was introduced through the anal canal to the rectum and advanced to the cecum. The ileocecal valve and appendiceal orifice were identified. The scope was advanced a short distance into the ileum which appeared grossly normal. The scope was then withdrawn into the colon. There was a single small sessile polyp (4 mm) in the transverse colon removed via cold snare polypectomy. The cecum, ascending, transverse, descending, sigmoid and rectum were grossly normal. There were no mucosal abnormalities identified. Upon retroflexion within the rectum there were grade 1 internal hemorrhoids.The preparation was fair throughout with [place] Preparation Score of 7 out of 9 with moderate amount of brown liquid stool. The cecal time was 12 minutes. Impression: 1. Diminutive transverse colon polyp 2. Grade 1 internal hemorrhoids Plan: I will follow-up the polyp histology and recommend repeat surveillance colonoscopy again in 7 years. I am going to recommend dietary measures, fiber bowel regimen and Iberogast.
[2024-09-01 09:38] VITALS: BP 131/84; PULSE 80; RESP 18; TEMP 36.2; O2SAT 97
[2024-09-01 09:48] VITALS: BP 132/90; PULSE 72; RESP 18; O2SAT 99
[2024-09-01 09:58] VITALS: BP 131/85; PULSE 79; RESP 18; O2SAT 100
[2024-09-01 12:22] VITALS: BP 148/86; PULSE 71; RESP 18; O2SAT 100
== END 2024-09-01 12:22 | disposition home or self-care (01) ==
PROVIDERS: PCP Family Medicine; Visit Provider Internal Medicine Gastroenterology
PROC: 0DJ08ZZ Inspection of Upper Intestinal Tract, Via Natural or Artificial Opening Endoscopic (ICD-10-PCS; CPT 43235; principal; 2024-09-01 08:30)
DX: R10.13 Epigastric pain (principal); R14.0 Abdominal distension (gaseous); R19.8 Other specified symptoms and signs involving the digestive system and abdomen; K26.9 Duodenal ulcer, unspecified as acute or chronic, without hemorrhage or perforation; R11.0 Nausea; R68.81 Early satiety; R19.7 Diarrhea, unspecified; K59.00 Constipation, unspecified; K21.9 Gastro-esophageal reflux disease without esophagitis; K44.9 Diaphragmatic hernia without obstruction or gangrene; K22.4 Dyskinesia of esophagus; K31.9 Disease of stomach and duodenum, unspecified; K29.70 Gastritis, unspecified, without bleeding; D12.3 Benign neoplasm of transverse colon; K64.0 First degree hemorrhoids
CPT/HCPCS: 45385; 43239; 81025; 82962; J2704; J7120

== ENCOUNTER 2024-11-28 10:44 | Outpatient (CLI) | payer OTHER, SELFPAY ==
[2024-11-28 18:31] LABS: Basophils # 0.1 K/mm3 (0-0.2); Eosinophils # 0.6 K/mm3 (0.0-0.4); Eosinophils % 4.3 % (0.1-12.0); Hematocrit 38.1 % (37.0-47.0); Hemoglobin 12.7 g/dL (12.2-16.2); Lymphocytes # 2.8 K/mm3 (0.7-4.5); Lymphocytes % 20.9 % (10-50); Mean Corpuscular HGB Conc 33.3 g/dL (31.8-35.4); Mean Corpuscular Hemoglobin 29.3 pg (27.0-31.2); Mean Platelet Volume 10.8 fl (7.4-10.4); Monocytes % 7.2 % (1.7-9.3); Neutrophils # 8.9 K/mm3 (1.8-7.8); Neutrophils % 65.8 % (37.0-80.0); Platelet Count 329 K/mm3 (142-424); Red Blood Count 4.33 M/mm3 (4.20-5.40); Red Cell Distribution Width 13.2 % (11.5-17.5); White Blood Count 13.5 K/mm3 (4.8-10.8)
[2024-11-28 18:55] LABS: Alanine Aminotransferase 24 U/L (12-78); Albumin Level 4.6 g/dl (3.5-5.0); Alkaline Phosphatase 92 U/L (38-126); Anion Gap 14.6 mEq/L (5-15); Aspartate Amino Transferase 32 U/L (14-36); Blood Urea Nitrogen 7 mg/dl (7-17); Calcium 9.7 mg/dl (8.4-10.2); Carbon Dioxide 26 mmol/L (22.0-30.0); Chloride 95 mmol/L (98-107); Estimated Glomerular Filt Rate 109 ml/min (>60); GFR (African American) 131 ML/MIN (>60); Globulin 2.3 g/dL (1.3-3.2); Glucose 109 mg/dl (74-100); Potassium 4.6 mmoL/L (3.5-5.1); Sodium 131 mmol/L (136-145); Total Protein,Serum 6.9 g/dl (6.3-8.2)
[2024-11-28 18:58] LABS: Erythrocyte Sedimentation Rate 9 mm/hr (0-20)
[2024-11-28 19:00] LABS: Bilirubin,Total 0.1 mg/dl (0.2-1.3)
[2024-11-28 19:01] LABS: C-Reactive Protein 1.2 mg/L (0-4)
[2024-11-28 20:47] LABS: Thyroid Stimulating Hormone 0.24 uIU/mL (0.465-4.68)
== END 2024-11-28 23:59 | disposition home or self-care (01) ==
LOC: LAB.DROPOF 11-29 07:50
PROVIDERS: PCP Family Medicine; Visit Provider Family Medicine
DX: F22 Delusional disorders (principal); M79.7 Fibromyalgia; F41.9 Anxiety disorder, unspecified
CPT/HCPCS: 80053; 84443; 85025; 85651; 86140

== ENCOUNTER 2025-02-20 14:00 | Outpatient (CLI) | payer MEDICARE, SELFPAY ==
[2025-02-20 18:25] LABS: Basophils # 0.1 K/mm3 (0-0.2); Basophils % 0.9 % (0.1-2.0); Eosinophils # 0.5 K/mm3 (0.0-0.4); Eosinophils % 4.4 % (0.1-12.0); Hematocrit 36.6 % (37.0-47.0); Hemoglobin 12.1 g/dL (12.2-16.2); Lymphocytes # 4.1 K/mm3 (0.7-4.5); Lymphocytes % 34.7 % (10-50); Mean Corpuscular HGB Conc 33.1 g/dL (31.8-35.4); Mean Corpuscular Hemoglobin 30.1 pg (27.0-31.2); Mean Platelet Volume 10.9 fl (7.4-10.4); Monocytes # 0.8 K/mm3 (0.1-1.0); Monocytes % 6.9 % (1.7-9.3); Neutrophils # 6.2 K/mm3 (1.8-7.8); Neutrophils % 52.5 % (37.0-80.0); Nucleated Red Blood Cells # 0 10^3/uL; Nucleated Red Blood Cells % 0 %; Platelet Count 342 K/mm3 (142-424); Red Blood Count 4.02 M/mm3 (4.20-5.40); Red Cell Distribution Width 12.7 % (11.5-17.5); Red Cell Distribution Width-SD 41.8 fL; White Blood Count 11.7 K/mm3 (4.8-10.8)
[2025-02-20 19:52] LABS: Albumin Level 4.4 g/dl (3.5-5.0); Chloride 105 mmol/L (98-107); Potassium 4.8 mmoL/L (3.5-5.1); Sodium 136 mmol/L (136-145)
[2025-02-20 19:55] LABS: Alanine Aminotransferase 24 U/L (12-78); Albumin/Globulin Ratio 1.5 (1.1-1.8); Alkaline Phosphatase 89 U/L (38-126); Anion Gap 14.8 mEq/L (5-15); Aspartate Amino Transferase 34 U/L (14-36); Bilirubin,Total 0.3 mg/dl (0.2-1.3); Blood Urea Nitrogen 6 mg/dl (7-17); Calcium 9.1 mg/dl (8.4-10.2); Carbon Dioxide 21 mmol/L (22.0-30.0); Estimated Glomerular Filt Rate 109 ml/min (>60); GFR (African American) 131 ML/MIN (>60); Globulin 2.9 g/dL (1.3-3.2); Glucose 112 mg/dl (74-100); Total Protein,Serum 7.3 g/dl (6.3-8.2)
[2025-02-20 20:07] LABS: T4 (Thyroxine) 7.3 ug/dl (5.53-11.0)
[2025-02-20 20:21] LABS: Thyroid Stimulating Hormone 0.28 uIU/mL (0.465-4.68)
--- OUTSIDE RECORDS SUMMARY | 2025-02-21 14:42 | XMS_ITS | Data Portability ---
Author Organization [facility] Address [address] [place] [address] Assessment No assessment recorded. Plan of Treatment Reminders Order Date Submit Date Provider Last Modified By Organization Details Last Modified Time Details Appointments None recorded. Lab None recorded. Referral None recorded. Procedures None recorded. Surgeries None recorded. Imaging XR, shoulder 2022 023 carlos [facility], [address] [place] [address] [place], [address], 3 12:01:27 XR, shoulder 2022 023 carlos [facility], [address] [place] [address] [place], [address], 3 12:00:59 XR, shoulder 2022 023 carlos [facility], [address] [place] [address] [place], [address], 3 11:31:48 CT, shoulder, w/o contrast 2022 023 [email or web address] [facility] (Centralized Scheduling), [address] [place] [address] [place], [address], 4 15:43:04 Medication Orders [place] 5 mg-325 mg tablet 2022 [address], [place], [address], 3 12:25:38 [place] 5 mg-325 mg tablet 2022 [address], [address], 3 12:28:54 ibuprofen 800 mg tablet 2022 [address], [address], 3 09:30:44 [place] 5 mg-325 mg tablet [facility]22 [facility]23 [facility] [address], [address], 3 11:23:00 Patient TargetsNo targets recorded. Patient InstructionsNo instructions recorded. Reason for Referral None Reported. Results Created Date Observation Date Name Description Value Unit Range Abnormal Flag Note LastModifiedBy Organization Detail LastModifiedTime 07/27/2007/27/2023 - CT lower ext w/o cont RT [facility] Name: Keiry SHEPHERD [facility] Phys: Alicia FLORENCE,[place] [address] : 1979 Age: 42 Sex: F Acct: [id number] Loc: G.CT PHONE #: Exam Date: 2022 Status : REG CLI FAX #: [phone] Rad# [id number] Unit# [id number] Admit Date: 2022 EXAMS: CPT CODE: [id number] [place] LOWER EXT W/[place] [id number] CLINIC AL INFORM ATION: Should er pain after trauma about a week lexus SALINAS OLIVA: Plain radiog raphs of the should er 023 TECHNI QUE: Multis lice axial unenha nced imagin g of the right should er was perfor med as well as 2-D recons tructi ons in the lennon l and sagitt al planes . Dose reduct ion achiev ed by adjust ing mA and/or kV based on patien t size. FINDIN GS: Commin uted mildly displa terence fractu re greate r tubero sity humeru s. The domina nt mike l head fragme nt as well locate d to the glenoi d. No eviden ce of the mike l neck fractu re. There is mild degene rative change s at the mike l head with an appare nt subcho ndral cyst subjac ent to the fractu re. No eviden ce of scapul ar fractu re The rotato r cuff is grossl y intact . IMPRES FERNANDA: 1. Commin uted mildly displa terence fractu re greate r tubero sity humeru s Commun icatio n: Per this writte n report . This report is genera radha using voice recogn ition comput er softwa re. Inadve rtent errors may have occurr ed while dictat ing report . Common sense approa ch is apprec iated and do not hesita te to call for clarif icatio n when necess dariela. Electr onical ly Signed by Darryl Landeros on 2022 at 0924 Report ed and signed by: SHANTI Landeros M.D. PAGE 1 Signed Report (DENISSE NUED) [facility] Name: Keiry SHEPHERD [facility] l [employer] Phys: Alicia FLORENCE,Prabhu Garcia [facility] [address] : 1979 Age: 42 Sex: F Acct: [id number] Loc: G.CT PHONE #: Exam Date: 2022 Status : REG CLI FAX #: Rad# [id number] Unit# [id number] Admit Date: 2022 EXAMS: CPT CODE: [id number] [place] LOWER EXT W/[place] [id number] CC: Rom Caldera MD; Scar Vargas MD Dictat ed Date/T yoel: 2022 (0924) Techno logist : ISH POLLIT T Transc ribed Date/T yoel: 2022 (923) Transc riptio nist: DR.HAR GABRIELA braxton Signat ure Date/T yoel: 2022 (923) Printe d Date/T yoel: 2022 (927) BATCH NO: N/A PAGE 2 Signed Report CC'ed Logic: Orderi ng Provid er: ALICIA HERRON Attend ing Provid er: ALICIA HERRON Referr ing Provid er: ALICIA HERRON Consul ting Provid er: MITCH DAVIS [email or web address] [place] [address] , [place], [address], 07/27/2023 15:29:41 07/31/20 23 XR, shoul michael No observ ation record ed. MONICA Edwards [address] [place], [address], 07/31/2023 09:25:50 08/10/20 23 XR, shoul michael No observ ation record ed. MONICA Edwards [address] , [place], [address], 08/10/2023 09:26:22 10/23/20 23 XR, shoul michael No observ ation record ed. MONICA [address] , [place], [address], 10/23/2023 08:54:58 Result Notes None recorded. Procedures Surgical History Date Name Laterality Status Provider Name and Address Organization Details Recorded Time 11/09/2018 Other completed [facility] [place] 07/24/2023 10:08:45 Imaging Results Imaging Date Name Status LastModified by Organiz ation Details LastModified Time 07/27/2023 - CT lower ext w/o cont RT completed [address] [place], [address], 07/27/2023 15:29:41 07/31/2023 XR, shoulder completed MONICA [facility] [address] [place] [address] [place], [address], 07/31/2023 09:25:50 08/10/2023 XR, shoulder completed MON[facility] [address] [place], [address], 08/10/2023 09:26:22 10/23/2023 XR, shoulder completed MONICA [facility] [address] [place], [address], 10/23/2023 08:54:58 Procedure Notes None recorded. Medical Equipment None Reported. Allergies No known drug allergies Medications Name Sig Start Date Stop Date Status Note LastModified by Organization Details LastModified Time cyclobenzap rine 10 mg tablet TAKE ONE TABLET BY MOUTH TWICE DAILY NEEDED FOR MUSCLE SPASMS active Not Available Not Available No t Available amoxicillin 500 mg capsule active Not Available Not Available Not Available fluconazole 100 mg tablet TAKE 1 TABLET BY MOUTH EVERY DAY 07/27 completed Not Available Not Available Not Available metformin 500 mg tablet TAKE ONE TABLET BY MOUTH TWICE DAILY active Not Available Not Available No t Available clonidine HCl 0.1 mg tablet TAKE ONE TABLET BY MOUTH AT BEDTIME active Not Available Not Available No t Available gabapentin 600 mg tablet TAKE 1 TABLET BY MOUTH EVERY EIGHT (8) HOURS NEEDED FOR PAIN 07/27 completed Not Available Not Available Not Available clindamycin HCl 300 mg capsule TAKE ONE (1) CAPSULE BY MOUTH EVERY EIGHT (8) HOURS active Not Available Not Available No t Available cetirizine 10 mg tablet TAKE ONE (1) TABLET BY MOUTH EVERY DAY 07/27 completed Not Available Not Available Not Available ibuprofen 800 mg tablet TAKE ONE TABLET BY MOUTH EVERY 8 HOURS NEEDED FOR PAIN active Not Available Not Available No t Available doxepin 25 mg capsule TAKE 1 CAPSULE BY MOUTH EVERY NIGHT AT BEDTIME active Not Available Not Available No t Available hydrocodone 5 mg-acetamin ophen 325 mg tablet TAKE ONE (1) TABLET EVERY SIX (6) HOURS BY ORAL ROUTE NEEDED FOR 7 DAYS. active Not Available Not Available No t Available prazosin 1 mg capsule TAKE 1 CAPSULE BY MOUTH EVERY NIGHT AT BEDTIME FOR THREE (3) DAYS active Not Available Not Available No t Available glipizide ER 10 mg tablet, extended release 24 hr TAKE 1 TABLET BY MOUTH EVERY DAY 07/27 completed Not Available Not Available Not Available gabapentin 400 mg capsule TAKE ONE CAPSULE BY MOUTH TWICE DAILY active Not Available Not Available No t Available hydroxyzine pamoate 50 mg capsule active Not Available Not Available N ot Available ciprofloxac in 500 mg tablet TAKE ONE TABLET BY MOUTH TWICE DAILY FOR 10 DAYS active Not Available Not Available No t Available sulfamethox azole 800 mg-trimetho prim 160 mg tablet TAKE 1 TABLET BY MOUTH TWICE DAILY 07/27 completed Not Available Not Available Not Available tramadol 50 mg tablet TAKE ONE (1) TABLET EVERY SIX (6) HOURS BY MOUTH NEEDED. active Not Available Not Available No t Available acetaminoph en 500 mg tablet active Not Available Not Available Not Available clonidine HCl 0.2 mg tablet TAKE ONE TABLET BY MOUTH AT BEDTIME active Not Available Not Available No t Available lorazepam 0.5 mg tablet NEEDED FOR ANXIETY; ONE (1) DURING THE DAY, ONE (1) TO TWO (2) AT BEDTIME NEEDED ANXIETY AND SLEEP PRN; active Not Available Not Available No t Available methocarbam ol 750 mg tablet active Not Available Not Available Not Available gabapentin 800 mg tablet TAKE 1 TABLET BY MOUTH THREE (3) TIMES DAILY active Not Available Not Available No t Available dicyclomine 20 mg tablet 07/27 completed Not Available Not Available Not Available pantoprazol e 40 mg tablet,payton yed release TAKE ONE (1) TABLET BY MOUTH EVERY DAY active Not Available Not Available No t Available trazodone 150 mg tablet TAKE ONE TABLET BY MOUTH AT BEDTIME NEEDED FOR insomnia active Not Available Not Available No t Available lidocaine 5 % topical patch active Not Available Not Available Not Available metoprolol tartrate 50 mg tablet TAKE ONE (1) TABLET BY MOUTH EVERY DAY IN THE MORNING AND TWO (2) IN THE EVENING active Not Available Not Available No t Available gabapentin 300 mg capsule TAKE ONE (1) CAPSULE BY MOUTH EVERY NIGHT AT BEDTIME active Not Available Not Available No t Available folic acid 1 mg tablet active Not Available Not Available Not Available lorazepam 1 mg tablet TAKE ONE TABLET BY MOUTH TWICE DAILY NEEDED FOR ANXIETY active Not Available Not Available No t Available methylpredn isolone 4 mg tablets in a dose pack TAKE DIRECTED ON PACKAGE active Not Available Not Available No t Available ondansetron 4 mg disintegrat ing tablet TAKE 1 TABLET ORALLY EVERY 8 HOURS active Not Available Not Available No t Available naproxen 500 mg tablet active Not Available Not Available Not Available ropinirole 4 mg tablet TAKE ONE TABLET BY MOUTH THREE TIMES DAILY active Not Available Not Available No t Available hydroxyzine pamoate 25 mg capsule active Not Available Not Available N ot Available azithromyci n 500 mg tablet TAKE ONE TABLET BY MOUTH UNTIL GONE active Not Available Not Available No t Available duloxetine 20 mg capsule,del ayed release active Not Available Not Available Not Available duloxetine 30 mg capsule,del ayed release TAKE ONE (1) CAPSULE BY MOUTH DAILY FOR THE FIRST WEEK, THEN INCREASE TO ONE CAPSULE TWICE DAILY active Not Available Not Available No t Available lorazepam active Not Available Not Elena ilable Not Available gabapentin active Not Available Not Av ailable Not Available Vivitrol 380 mg intramuscul ar suspension, extended release INJECT 380 MG (CONTENTS OF ONE (1) SYRINGE) INTRAMUSC ULARLY EVERY MONTH 07/27 completed Not Available Not Available Not Available levocetiriz ine 5 mg tablet TAKE 1 TABLET BY MOUTH EVERY DAY active Not Available Not Available No t Available OneTouch Verio test strips USE ONE (1) STRIP TO TEST THREE (3) TIMES DAILY *MORNING, AFTERNOON , AND NIGHT* 07/27 completed Not Available Not Available Not Available Otezla 30 mg tablet TAKE ONE (1) TABLET BY MOUTH TWICE DAILY active Not Available Not Available No t Available naloxone 4 mg/actuatio n nasal spray active Not Available Not Available Not Available OneTouch Delica Plus Lancet 33 gauge USE ONE (1) LANCET TO TEST THREE (3) TIMES DAILY *MORNING, AFTERNOON , AND NIGHT* 07/27 completed Not Available Not Available Not Available OneTouch Verio Reflect Meter USE DIRECTED 07/27 completed Not Available Not Available Not Available Vitals Date Recorded Body temperature Heart rate Respiratory rate Systolic blood pressure Diastolic blood pressure Provider Name and Address Organization Details Last Updated DateTime 3 97 [degF] 70 /min 16 /min 136 mm[Hg] 80 mm[Hg] Ale Paul [place] [facility] [place] 08:48:09 Social History Question Answer Notes LastModified by Organizat ion Details LastModified Time Do You Have An Advance Directive? No [email or web address] Information n ot available 07/24/2023 What Is Your Level Of Alcohol Consumption? Moderate [email or web address] Information not available 07/24/2023 Are You Blind Or Do You Have Difficulty Seeing? No [email or web address] Information n ot available 07/24/2023 What Was The Date Of Your Most Recent Tobacco Screening? 07/24/2023 [email or web address] Information not available 07/24/2023 Are You Passively Exposed To Smoke? No [email or web address] Information no t available 07/24/2023 Do You Feel Stressed (tense, Restless, Nervous, Or Anxious, Or Unable To Sleep At Night)? [id number] [email or web address] Information not available 07/24/2023 Do You Use Any Illicit Or Recreational Drugs? Yes [email or web address] Information not available 07/24/2023 Sex: Unknown Functional Status None recorded. Mental Status None recorded. Family History Relationship Description Onset Age of this Age Resolved Age Notes LastModified by Organization Details LastModified Time Father No current problems or disability [email or web address] Not available 07/24 10:10:13 Mother No current problems or disability [email or web address] Not available 07/24 10:10:13 Medical History Condition Response Diabetes Y Autoimmune disease Y Substance Abuse Y Vision or Eye Problems Y Arthritis Y Seizures/Epilepsy Y Rheumatoid Arthritis Y Back Problems Y Hypertension Y Gynecological History Statement/Question Response Current Control Method None Sexually Active? N Obstetrics History GPAL:G 0 P 0 0 0 0 Past Encounters Encounter ID Performer Location Encounter Start Date Encounter Closed Date Diagnosis/Indication Diagnosis SNOMED-CT Code Diagnosis ICD10 Code Diagnosis Note [id number] DO DELORES WALLACE [address] [address] 07/24/2023 09:36:48 07/24/2023 10:28:29 Closed fracture of greater tuberosity of proximal right humerus [id number] S42.251A [id number] DO DELORES WALLACE [facility] [address] [place] [address] 07/31/2023 08:29:54 07/31/2023 09:31:22 Closed fracture of greater tuberosity of proximal right humerus [id number] S42.251A [id number] [facility] [address] [address] 08/10/2023 09:12:55 08/10/2023 10:23:48 Closed fracture of greater tuberosity of proximal right humerus [id number] S42.251D [id number] FANI MARIE DO [facility] [address] [address] 10/23/2023 08:29:21 10/23/2023 09:31:33 Closed fracture of greater tuberosity of proximal right humerus [id number] S42.251D Health Concerns Section Related Observation LastModified by Organization Detai ls LastModified Time None Recorded Concern Status LastModified by Organization Details LastModified Time None Recorded Advance Directives Directive N: Payers Encounter Date Sequence Insurance Name Policy Number Policy Rivera Covered Member ID Rivera Member ID Guarantor Name 07/24/2023 1 [place] [id number] Keyanna R Andre [id number] Keyanna Andre 07/31/2023 1 [place] [id number] Keyanna R Andre [id number] Keyanna Andre 08/10/2023 1 [id number] Keyanna R Andre [id number] Keyanna Andre 10/23/2023 1 [id number] Keyanna R Andre [id number] Keyanna Andre Notes Date Note Type Note Provider Name and Address Organization Details Recorded Time 07/24/2023 text/html This is a 42 yea r old right handed female here today for right shoulder injury. 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 Does not know how she injured her shoulder. Went to [facility] ER xrays taken. E3 JS FANI MARIE DO [address] [place] [address],[address], [place], [address], [facility] & [place] 07/24/2023 11:24:32 07/31/2023 text/html 07.24.23 Office N ote: I did talk to her about treatment options and how she is very close to a surgical indication for fixation of the greater tuberosity fragment. I recommended proceeding with a CT scan to further evaluate the fracture pattern as well as the amount of displacement. I will see her back early next week once this is complete to discuss her treatment options. For the time being she is remained in the sling and be nonweightbearing to the right upper extremity. 07.27.23 CT @ [facility] of RIGHT lower extremity -FINDINGS: Comminuted mildly displaced fracture greater tuberosityhumerus. The dominant humeral head fragment as well located to theglenoid. No evidence of the humeral neck fracture. There is milddegenerative changes at the humeral head with an apparent subchondralcyst subjacent to the fracture.No evidence of scapular fractureThe rotator cuff is grossly intact.IMPRESSION: 1. Comminuted mildly displaced fracture greater tuberosity humerus. FANI MARIE DO [address] [place] [address],[address], [place], [address], [facility] & [place] 07/31/2023 12:30:43 08/10/2023 text/html Patient here tod anjum for 3 week follow up comminuted mildly displaced fracture greater tuberosity humerus. Had CT of right extremity at [facility] 07/27/23 which revealed above. Is wearing sling and utilizing Ibuprofen for pain which she states takes the edge off. Pain is more prominent at night. Reports ROM is slightly improving. 2v right shoulder today in office. [id number] FANI MARIE DO [address] [facility],[address], [place], [address], [facility] & [place] 08/10/2023 12:27:59 10/23/2023 text/html 3 months post ri ght comminuted mildly displaced fracture greater tuberosity humerusMissed last aptHas been using arm, but is not in outpatient PTPatient had a fall yesterday going down stepsPatient has had increased pain since last [email or web address] FANI MARIE DO [address] [facility],[address], [place], [address], [place] [facility] [place] 10/23/2023 13:47:22 OBGyn Episode No OBEpisode recorded.
== END 2025-02-20 23:59 | disposition home or self-care (01) ==
LOC: LAB.DROPOF 02-21 14:40
PROVIDERS: PCP Family Medicine; Visit Provider Family Medicine
DX: R10.13 Epigastric pain (principal); I10 Essential (primary) hypertension
CPT/HCPCS: 80053; 84436; 84443; 85025

== ENCOUNTER → 2025-04-25 19:28 | Outpatient (CLI) | payer OTHER, SELFPAY ==
--- OUTSIDE RECORDS SUMMARY | 2025-04-25 19:33 | XMS_ITS | Data Portability ---
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 and walking. Bilateral SI are positive for LANIE, Rupinder's, Elon's, Gaenslen's, compression, and distraction. Patient has tried and failed conservative therapy such as oral medication and not home exercises for greater than 6 weeks. We will schedule the patient for bilateral SI injection. Risk and benefits of this procedure has been discussed with the patient. Patient would like to proceed with the procedure. Will also refer the patient to physical therapy for further evaluation and treatment. Patient has been instructed to contact the clinic with any concerns before the next appointment. Dr. Handy has reviewed this note and agrees with this plan of care. This note was dictated using voice recognition software and may contain errors or omissions. Potential Risk of Events: Potential risk of an Adverse Event for this patient may include: [ ] CCing to Providers: Rom Caldera at 1215 RPT #: [id number] END OF REPORT CC'ed Logic: Attending Provider: KATHI SOLANO Referring Provider: MITCH DAVIS Consulting Provider: MITCH Elkins [facility] [place] [facility] 03[facility]22 16:24:04 Procedures Surgical History Date Name Laterality Status Provider Name and Address Organization Details Recorded Time 4 Date of Last Pap Smear completed Lennie Sandoval APRN [address], [place], [address], [place] - [facility] 06/29/2024 09:52:10 1 Dilation and Evacuation completed Princess Faye [place] - [facility] 09/22/2016 14:56:26 Breast Surgery completed Princess Faye [place] - [facility] 09/22/2016 14:55:06 dental surgery completed [facility] - [facility] 09/22/2016 14:55:36 Imaging Results None recorded. Procedure Notes None recorded. Medical Equipment None Reported. Allergies No known drug allergies Medications Name Sig Start Date Stop Date Status Note LastModified by Organization Details LastModified Time multivita min tablet take 1 tablet by oral route daily 04/21 completed multivit dean Oral tablet;R ecorded Status: Recorded on: 11/15/19 13 11:03AM; Disconti nued Status: Disconti nued on: 04/21/20 13 10:58AM; User: [email or web address] Not Available Not Available Not Available Prometriu m 200 mg capsule 1 PO QHS 04/21 completed Prometri um 200 mg oral capsule; Recorded Status: Recorded on: 12/22/19 13 4:36PM;D iscontin ued Status: Disconti nued on: 04/21/20 13 10:58AM; User: [email or web address] ;Est. Singh on: 03/22/20 13;Print ed: 12/22/19 13 Not Available Not Available Not Available cyclobenz aprine 10 mg tablet TAKE ONE (1) TABLET BY MOUTH TWICE DAILY NEEDED FOR MUSCLE SPASMS active Not Available Not Available No t Available amoxicill in 500 mg capsule Take 1 capsule twice a day by oral route for 7 days. 10/02 completed Not Available Not Available Not Available bupropion HCl SR 150 mg tablet,12 hr sustained -release take 1 tablet (150 mg) by oral route once daily 08/14 completed bupropio n HCl 150 mg oral tablet extended release; Recorded Status: Recorded on: 08/14/20 11:05AM; Disconti nued Status: Disconti nued on: 08/14/20 11:57AM; User: Ralph Singh on: 08/23/20 15;Indic ation: Major Depressi ve Disorder - (05.6742 00) Not Available Not Available Not Available prednison e 10 mg tablet TAKE SIX (6) TABLETS BY MOUTH ON DAY ONE (1) TAKE FIVE (5) TABLETS BY MOUTH ON DAY TWO (2) TAKE FOUR (4) TABLETS BY MOUTH ON DAY THREE (3) T 10/02 completed Not Available Not Available Not Available gabapenti n 600 mg tablet TAKE 1 TABLET BY MOUTH EVERY EIGHT (8) HOURS NEEDED FOR PAIN active Not Available Not Available No t Available atorvasta tin 20 mg tablet Take 1 tablet every day by oral route in the evening. 09/24 completed Not Available Not Available Not Available ropinirol e 1 mg tablet Take 1 tablet 3 times a day by oral route. active Not Available Not Available No t Available niacin ER 1,000 mg tablet,ex tended release 24 hr TAKE TWO TABLETS BY MOUTH EVERY DAY AT BEDTIME WITH A LIGHT SNACK . START WITH 1 TABLET AND WORK UP TO 2 TABLETS AT BEDTIME 09/24 completed Not Available Not Available Not Available clindamyc in HCl 300 mg capsule TAKE 1 CAPSULE BY MOUTH TWICE DAILY FOR 7 DAYS 10/02 completed Not Available Not Available Not Available Remeron 30 mg tablet take 1 tablet (30 mg) by oral route once daily before bedtime 09/24 completed Remeron 30 mg oral tablet;R ecorded Status: Recorded on: 08/05/20 11 3:07PM;D iscontin ued Status: Disconti nued on: 10/09/20 11 3:37PM;U ser: [email or web address] Not Available Not Available Not Available Ginseng Hungarian 518 mg capsule take 1 capsule by oral route daily 03/12 completed Ginseng Hungarian 518 mg oral capsule; Recorded Status: Recorded on: 02/11/20 11 5:28PM;D iscontin ued Status: Disconti nued on: 03/12/20 11 9:42AM;U ser: [email or web address] Not Available Not Available Not Available citalopra m 40 mg tablet take 1 tablet (40 mg) by oral route once daily 08/08 completed citalopr am 40 mg oral tablet;c omment: anorgasm ia;Recor ded Status: Recorded on: 09/19/20 13 8:49AM;D iscontin ued Status: Disconti nued on: 08/08/20 14 3:17PM;U ser: neuss;Es t. Completi on: 10/19/20 13;Indic ation: Major Depressi ve Disorder - (05.2962 00) Not Available Not Available Not Available cetirizin e 10 mg tablet TAKE ONE (1) TABLET BY MOUTH EVERY DAY active Not Available Not Available No t Available azithromy maria r 250 mg tablet TAKE 2 TABLETS TODAY, THEN TAKE 1 TABLET EVERY DAY FOR 4 DAYS 10/02 completed Not Available Not Available Not Available ibuprofen 800 mg tablet TAKE 1 TABLET EVERY EIGHT (8) HOURS NEEDED FOR PAIN active Not Available Not Available No t Available metoprolo l tartrate 100 mg tablet TAKE ONE TABLET BY MOUTH 2 TIMES A DAY 10/26 completed Not Available Not Available Not Available Cytotec 200 mcg tablet take 1 tablet (200 mcg) by oral route at 6 PM and 10 PM 08/05 completed Cytotec 200 mcg oral tablet;R ecorded Status: Recorded on: 06/18/20 11 2:11PM;D iscontin ued Status: Disconti nued on: 08/05/20 11 3:06PM;U ser: [email or web address]; Printed: 06/18/20 11 Not Available Not Available Not Available fluconazo le 150 mg tablet TAKE 1 TABLET BY MOUTH NOW THEN REPEAT DOSE IN THREE (3) DAYS 11/11 completed Not Available Not Available Not Available benzonata te 200 mg capsule TAKE ONE (1) CAPSULE BY MOUTH THREE TIMES A DAY NEEDED FOR COUGH 09/11 completed Not Available Not Available Not Available hydrocodo ne 5 mg-acetam inophen 325 mg tablet Take 1 tablet every 4 hours by oral route as needed. 10/02 completed Not Available Not Available Not Available metronida zole 0.75 % (37.5 mg/5 gram) vaginal gel insert 1 applicat orful (37.5 mg) by vaginal route once daily at bedtime for 5 days 02/18 completed metronid azole 0.75 % vaginal gel;Pres cribe Status: Prescrib ed on: 12/13/19 16 3:30PM;D iscontin ued Status: Disconti nued on: 02/19/20 16 6:24PM;U ser: tartern; Est. Completi on: 12/18/19 16;Pharm acyVerif ied: 12/13/19 16 3:30PM Not Available Not Available Not Available famotidin e 40 mg tablet 09/07 completed Not Available Not Available Not Available prednison e 20 mg tablet TAKE ONE TABLET BY MOUTH TWICE DAILY 11/11 completed Not Available Not Available Not Available clonazepa m 0.5 mg tablet take 1 tablet (0.5 mg) by oral route 2 times per day for 30 days 03/26 completed clonazep am 0.5 mg oral tablet;R ecorded Status: Recorded on: 03/26/20 12 11:00AM; Disconti nued Status: Disconti nued on: 03/26/20 12 12:29PM; User: vesth Not Available Not Available Not Available prednison e 5 mg tablet 09/07 completed Not Available Not Available Not Available Toprol XL 50 mg tablet,ex tended release TAKE ONE-HALF TABLET BY MOUTH TWICE A DAY 04/09 completed Toprol XL 50 mg oral tablet extended release 24 hr;Presc ribe Status: Prescrib ed on: 12/20/19 16 10:48AM; Disconti nued Status: Disconti nued on: 04/09/20 16 6:36PM;U ser: neuss Not Available Not Available Not Available Nexium 40 mg capsule,d elayed release take 1 capsule by oral route daily 11/15 completed Nexium 40 mg oral capsule, delayed release( /EC);R ecorded Status: Recorded on: 08/10/20 12 8:13PM;D iscontin ued Status: Disconti nued on: 11/15/19 13 11:03AM; User: avel;Es t. Completi on: 09/08/20 12;Indic ation: Gastroes ophageal Reflux - (09.5308 10) Not Available Not Available Not Available metronida zole 500 mg tablet TAKE ONE (1) TABLET TWICE A DAY BY ORAL ROUTE FOR 7 DAYS. 09/11 completed Not Available Not Available Not Available Tamiflu 75 mg capsule take 1 capsule (75 mg) by oral route 2 times per day for 5 days 03/12 completed Tamiflu 75 mg oral capsule; Recorded Status: Recorded on: 02/12/20 11 11:06AM; Disconti nued Status: Disconti nued on: 03/12/20 11 9:42AM;U ser: bakerc;E st. Completi on: 02/17/20 11 Not Available Not Available Not Available sulfameth oxazole 800 mg-trimet hoprim 160 mg tablet ONE (1) BY MOUTH TWICE DAILY FOR 7 DAYS 06/23 completed Not Available Not Available Not Available tramadol 50 mg tablet take 1 tablet (50 mg) by oral route every 4 hours as needed 03/26 completed tramadol 50 mg oral tablet;R ecorded Status: Recorded on: 02/10/20 12 4:34PM;D iscontin ued Status: Disconti nued on: 03/26/20 12 11:00AM; User: Bo staley n: Pain - (167809 00);Prin radha: 02/10/20 12 Not Available Not Available Not Available quetiapin e 100 mg tablet TAKE 1 TABLET BY MOUTH AT BEDTIME NEEDED SLEEP active Not Available Not Available No t Available ondansetr on 8 mg disintegr ating tablet DISSOLVE 1 TABLET ON TOP OF TONGUE EVERY EIGHT (8) HOURS NEEDED FOR NAUSEA active Not Available Not Available No t Available Stress B/Iron/Bi otin tablet take 1 tablet by oral route daily 11/15 completed Stress B/Iron/B iotin Oral Tablet;R ecorded Status: Recorded on: 04/28/20 12 10:06AM; Disconti nued Status: Disconti nued on: 11/15/19 13 11:03AM; User: avel Not Available Not Available Not Available ketorolac 10 mg tablet TAKE 1 TABLET BY MOUTH EVERY 12 HOURS NEEDED FOR PAIN 10/02 completed Not Available Not Available Not Available Thera 400 mcg tablet take 1 tablet by oral route daily 07/06 completed Thera Vitamin Oral Tablet;R ecorded Status: Recorded on: 04/28/20 12 10:06AM; Disconti nued Status: Disconti nued on: 07/06/20 12 10:13AM; User: avel Not Available Not Available Not Available Procardia 10 mg capsule take 2 capsules (20 mg) by oral route 4 times per day for 7 days 03/02 completed Procardi a 10 mg oral capsule; comment: mistake; Recorded Status: Recorded on: 03/02/20 13 11:48AM; Disconti nued Status: Disconti nued on: 03/02/20 13 11:51AM; User: [email or web address]; Est. Completi on: 03/09/20 13;Print ed: 03/02/20 13 Not Available Not Available Not Available Zofran 4 mg tablet Take 1 tablet every 6 hours by oral route as needed. 06/12 completed Not Available Not Available Not Available oxycodone -acetamin ophen 5 mg-325 mg tablet 10/02 completed Not Available Not Available Not Available calcium 600 mg (as calcium carbonate 1,500 mg) tablet 02/10 completed Calcium 600 mg;Recor ded Status: Recorded on: 08/12/20 08 10:03PM; Disconti nued Status: Disconti nued on: 02/11/20 11 5:28PM;U ser: [email or web address] Not Available Not Available Not Available amoxicill in 875 mg tablet TAKE 1 TABLET BY MOUTH EVERY 12 HOURS FOR 7 DAYS 10/02 completed Not Available Not Available Not Available Vitamins B Complex tablet take 1 tablet by oral route daily 03/12 completed Vitamins B Complex oral tablet;R ecorded Status: Recorded on: 02/11/20 11 5:28PM;D iscontin ued Status: Disconti nued on: 03/12/20 11 9:42AM;U ser: [email or web address] Not Available Not Available Not Available lorazepam 0.5 mg tablet take 1/2-2 tablets (1 mg) by oral route 2 times per day prn 12/01 completed lorazepa m 0.5 mg oral tablet;R ecorded Status: Recorded on: 01/09/20 09 1:18PM;D iscontin ued Status: Disconti nued on: 10/22/20 09 6:16PM;U ser: neuss;Es t. Completi on: 01/09/20 09;Indic ation: Anxiety - () Not Available Not Available Not Available temazepam 15 mg capsule take 1 capsule (15 mg) by oral route once daily at bedtime as needed for 30 days 06/30 completed temazepa m 15 mg oral capsule; Recorded Status: Recorded on: 06/23/20 11 4:50PM;D iscontin ued Status: Disconti nued on: 06/30/20 11 10:41AM; User: neuss;Es t. Completi on: 10/21/20 11;Indic ation: Insomnia - (7805 20) Not Available Not Available Not Available Midrin 65 mg-100 mg-325 mg capsule take 1 capsule by oral route every 4 hours 03/12 completed Midrin 65-100-3 25 mg oral capsule; Recorded Status: Recorded on: 02/11/20 11 5:21PM;D iscontin ued Status: Disconti nued on: 03/12/20 11 9:42AM;U ser: nora; Eveliati on: Tension- Type Headache - (3078 ) Not Available Not Available Not Available Methergin e 0.2 mg tablet take 1 tablet (0.2 mg) by oral route every 8 hrs for 3 days; start Post-op. May take ASA or Advil with each tab prn headache or cramps 08/05 completed Methergi ne 0.2 mg oral tablet;R ecorded Status: Recorded on: 06/18/20 11 2:11PM;D iscontin ued Status: Disconti nued on: 08/05/20 11 3:06PM;U ser: nabila; Est. Completi on: 06/21/20 11;Print ed: 06/18/20 11 Not Available Not Available Not Available lorazepam 2 mg tablet take 0.5-1 tablet by oral route daily 10/26 completed Not Available Not Available Not Available benzonata te 100 mg capsule TAKE 1 CAPSULE BY MOUTH THREE (3) TIMES DAILY NEEDED FOR COUGH 10/02 completed Not Available Not Available Not Available cephalexi n 500 mg capsule TAKE 1 CAPSULE BY MOUTH EVERY EIGHT (8) HOURS UNTIL GONE 10/02 completed Not Available Not Available Not Available paroxetin e 20 mg tablet TAKE ONE TABLET BY MOUTH EVERY DAY 12/01 completed Not Available Not Available Not Available pantopraz ole 40 mg tablet,de layed release TAKE ONE (1) TABLET BY MOUTH EVERY DAY active Not Available Not Available No t Available Cipro 500 mg tablet take 1 tablet (500 mg) by oral route every 12 hours for 7 days 05/22 completed Cipro 500 mg oral tablet;R ecorded Status: Recorded on: 03/14/20 14 4:17PM;D iscontin ued Status: Disconti nued on: 05/22/20 14 4:01PM;U ser: neuss;In dication : Bacteria l Urinary Tract Infectio n - (10.5990 04) Not Available Not Available Not Available buspirone 10 mg tablet take 1 tablet (10 mg) by oral route qd for 7 ndays then bid 12/04 completed buspiron e 10 mg oral tablet;R ecorded Status: Recorded on: 10/31/20 08 10:41AM; Disconti nued Status: Disconti nued on: 12/04/19 09 2:35PM;U ser: [email or web address] ;Indicat ion: Generali zed Anxiety Disorder - ();Prin radha: 10/31/20 08 Not Available Not Available Not Available promethaz ine 25 mg tablet Take 1 tablet every 6 hours by oral route as needed. 03/03 completed Not Available Not Available Not Available metoprolo l tartrate 50 mg tablet TAKE 1 TABLET EVERY IN THE MORNING AND TWO (2) EVERY IN THE EVENING active Not Available Not Available No t Available indometha maria r 50 mg capsule take 1 capsule by oral route 3 times a day as needed 01/25 completed indometh acin 50 mg oral capsule; Recorded Status: Recorded on: 08/22/20 13 7:43PM;D iscontin ued Status: Disconti nued on: 01/26/20 14 9:08AM;U ser: neuss;Es t. Completi on: 09/21/20 13 Not Available Not Available Not Available Ortho-Cyc gabriel (28) 35 mcg-0.25 mg tablet 1 po qd 10/08 completed Replaced /Retired Drug 35-0.25 mcg-mg oral tablet;R ecorded Status: Recorded on: 08/12/20 08 10:03PM; Disconti nued Status: Disconti nued on: 10/08/20 10 10:27AM; User: uriah Not Available Not Available Not Available gabapenti n 300 mg capsule TAKE 300 MG BY MOUTH THREE (3) TIMES DAILY NEEDED FOR PAIN 10/02 completed Not Available Not Available Not Available Adipex-P 37.5 mg capsule 1/2 qod 10/08 completed Adipex-P 37.5 mg oral capsule; Recorded Status: Recorded on: 08/22/20 08 5:27PM;D iscontin ued Status: Disconti nued on: 10/08/20 10 10:27AM; User: Reginaldo cuevas Completi on: 10/21/20 08;Indic ation: Obesity - (2780 00) Not Available Not Available Not Available diclofena c sodium 75 mg tablet,de layed release take 1 tablet (75 mg) by oral route 2 times per day for 14 days 03/26 completed diclofen ac sodium 75 mg oral tablet,d elayed release (/EC); Recorded Status: Recorded on: 03/12/20 12 1:14PM;D iscontin ued Status: Disconti nued on: 03/26/20 12 12:29PM; User: Chad cuevas Completi on: 03/26/20 12;Print ed: 03/12/20 12 Not Available Not Available Not Available cephalexi n 500 mg tablet take 1 tablet (500 mg) by oral route TID 03/12 completed cephalex in 500 mg oral tablet;R ecorded Status: Recorded on: 02/10/20 12 4:34PM;D iscontin ued Status: Disconti nued on: 03/12/20 12 12:50PM; User: Nikki cuevas Completjeremy on: 02/20/20 12;Print ed: 02/10/20 12 Not Available Not Available Not Available Lamictal 150 mg tablet take 1 tablet (150 mg) by oral route 2 times per day for 30 days 03/26 completed Lamictal 150 mg oral tablet;R ecorded Status: Recorded on: 03/26/20 12 11:00AM; Disconti nued Status: Disconti nued on: 03/26/20 12 12:29PM; User: charlotte Not Available Not Available Not Available hydroxyzi ne HCl 25 mg tablet 1 tablet PO QHS PRN 01/03 completed hydroxyz ine HCl 25 mg oral tablet;R ecorded Status: Recorded on: 11/23/19 13 4:56PM;D iscontin ued Status: Disconti nued on: 01/03/20 13 1:33PM;U ser: [email or web address] ;Est. Completi on: 01/23/20 13;Print ed: 11/23/19 13 Not Available Not Available Not Available mupirocin 2 % topical ointment APPLY ONE APPLICAT ION TOPICALL Y THREE (3) TIMES DAILY 10/02 completed Not Available Not Available Not Available lorazepam 1 mg tablet TAKE 1 TABLET BY MOUTH EVERY 8 HOURS NEEDED FOR ANXIETY active Not Available Not Available No t Available diazepam 10 mg tablet TAKE 1 TABLET BY MOUTH DAILY TAKE ONE (1) HOUR BEFORE PROCEUDR E 06/23 completed Not Available Not Available Not Available Lopid 600 mg tablet take 1 tablet (600 mg) by oral route 2 times per day 30 minutes before morning and evening meal for 30 days 01/27 completed Lopid 600 mg oral tablet;R ecorded Status: Recorded on: 06/11/20 16 12:57PM; User: Ralph Singh on: 10/09/20 16;Print ed: 07/08/20 16 Not Available Not Available Not Available oxycodone -acetamin ophen 7.5 mg-325 mg tablet TAKE 1 TABLET BY MOUTH EVERY SIX (6) HOURS NEEDED FOR PAIN 10/02 completed Not Available Not Available Not Available methylpre dnisolone 4 mg tablets in a dose pack USE DIRECTED 09/11 completed Not Available Not Available Not Available albuterol sulfate HFA 90 mcg/actua tion aerosol inhaler INHALE TWO (2) PUFFS BY MOUTH EVERY FOUR (4) HOURS 10/02 completed Not Available Not Available Not Available Zoloft 100 mg tablet take 2 tablets (200 mg) by oral route once daily for 30 days 05/31 completed Zoloft 100 mg oral tablet;R ecorded Status: Recorded on: 04/28/20 12 10:24AM; Disconti nued Status: Disconti nued on: 05/31/20 12 12:10PM; User: Ralph Singh on: 10/25/20 12;Indic ation: Panic Disorder - (05.3000 10) Not Available Not Available Not Available Paxil 10 mg tablet take 1 tablet (10 mg) by oral route once daily for 30 days 10/08 completed Paxil 10 mg oral tablet;R ecorded Status: Recorded on: 11/13/19 10 1:29PM;D iscontin ued Status: Disconti nued on: 10/08/20 10 10:27AM; User: neuss;Es t. Completi on: 12/13/19 10 Not Available Not Available Not Available ondansetr on 4 mg disintegr ating tablet TAKE 1 TABLET BY MOUTH THREE (3) TIMES DAILY NEEDED FOR NAUSEA AND VOMITING 10/02 completed Not Available Not Available Not Available Klonopin 1 mg tablet take 1 tablet (1 mg) by oral route 2 times per day 03/26 completed Klonopin 1 mg oral tablet;R ecorded Status: Recorded on: 03/12/20 12 12:50PM; Disconti nued Status: Disconti nued on: 03/26/20 12 11:00AM; User: andrusa Not Available Not Available Not Available fluoxetin e 20 mg capsule take 1 capsule (20 mg) by oral route once daily in the morning 08/22 completed fluoxeti ne 20 mg oral capsule; Recorded Status: Recorded on: 04/15/20 13 4:32PM;D iscontin ued Status: Disconti nued on: 08/22/20 13 7:35PM;U ser: neuss;Es t. Completi on: 10/12/20 13;Indic ation: Obsessiv e-Compul sive Disorder - (3003 ) Not Available Not Available Not Available fluticaso ne propionat e 50 mcg/actua tion nasal spray,chavo pension inhale 1 spray (50 mcg) in each nostril by intranas al route once daily for 30 days 09/24 completed fluticas one 50 mcg/actu ation nasal spray,pritchett spension ;Recorde d Status: Recorded on: 06/03/20 16 10:15AM; User: neuss;In dication : Allergic Rhinitis - (4779 ) Not Available Not Available Not Available Ambien 10 mg tablet take 1 tablet (10 mg) by oral route once daily at bedtime for 30 days 08/14 completed Ambien 10 mg oral tablet;R ecorded Status: Recorded on: 03/20/20 15 10:12AM; Disconti nued Status: Disconti nued on: 08/14/20 15 11:57AM; User: [email or web address];Es t. Completi on: 04/19/20 15 Not Available Not Available Not Available Augmentin 500 mg-125 mg tablet take 1 tablet by oral route every 12 hours for 10 days 01/15 completed Augmenti n 500-125 mg oral tablet;P rescribe Status: Prescrib ed on: 10/27/20 14 2:27PM;D iscontin ued Status: Disconti nued on: 01/16/20 15 1:08PM;U ser: avel;Es t. Completi on: 11/06/20 14;Pharm acyVerif ied: 10/27/20 14 2:27PM Not Available Not Available Not Available Xanax 1 mg tablet take 1 tablet by oral route 2 times a day as needed for 30 days 05/31 completed Xanax 1 mg oral tablet;R ecorded Status: Recorded on: 04/28/20 12 10:24AM; Disconti nued Status: Disconti nued on: 05/31/20 12 10:55AM; User: stephaniess;Es t. Completi on: 05/28/20 12;Indic ation: Panic Disorder - (05.3000 10) Not Available Not Available Not Available Ortho Tri-Cycle n (28) 0.18 mg(7)/0.2 15mg(7)/0 .25 mg(7)-0.0 35 mg tablet 1 po qd 03/16 completed Ortho Tri-Cycl en (28) 0.18/0.2 15/0.25 mg-35 mcg (28) oral tablet;P rescribe Status: Prescrib ed on: 02/27/20 15 1:10PM;D iscontin ued Status: Disconti nued on: 03/16/20 15 2:14PM;U ser: aakash; Est. Completi on: 03/26/20 15;Pharm acyVerif ied: 02/27/20 15 1:10PM Not Available Not Available Not Available Clinoril 200 mg tablet 1 ,po bid 10/31 completed Clinoril 200 mg oral tablet;R ecorded Status: Recorded on: 08/12/20 08 10:04PM; Disconti nued Status: Disconti nued on: 10/31/20 08 10:02AM; User: felice Not Available Not Available Not Available Vistaril 50 mg capsule take 1 capsule by oral route daily as needed 08/05 completed Vistaril 50 mg oral capsule; Recorded Status: Recorded on: 04/28/20 11 6:20PM;D iscontin ued Status: Disconti nued on: 08/05/20 11 3:06PM;U ser: showerl; Indicati on: Anxiety - (3000 00);Prin radha: 04/28/20 11 Not Available Not Available Not Available diazepam 5 mg tablet take 1 tablet (5 mg) q hs and 0.5-1 during the day for extreme anxiety- -use sparingl y 12/20 completed diazepam 5 mg oral tablet;R ecorded Status: Recorded on: 08/22/20 13 7:33PM;D iscontin ued Status: Disconti nued on: 12/20/19 14 7:07PM;U ser: neuss;Es t. Completi on: 12/20/19 14;Indic ation: Anxiety - (3000 00) Not Available Not Available Not Available amoxicill in 875 mg-potass ium clavulana te 125 mg tablet TAKE ONE (1) TABLET BY MOUTH TWICE A DAY 09/11 completed Not Available Not Available Not Available buspirone 15 mg tablet take 2 tablets (30 mg) by oral route 2 times per day for 30 days 05/31 completed buspiron e 15 mg oral tablet;R ecorded Status: Recorded on: 04/28/20 12 10:24AM; Disconti nued Status: Disconti nued on: 05/31/20 12 10:55AM; User: neuss;Es t. Completi on: 10/25/20 12;Indic ation: Generali zed Anxiety Disorder - () Not Available Not Available Not Available oxycodone 5 mg tablet TAKE 1 TABLET BY MOUTH EVERY SIX (6) HOURS NEEDED FOR MODERATE TO SEVERE PAIN 10/02 completed Not Available Not Available Not Available Benadryl 25 mg capsule take 1 capsule (25 mg) by oral route every 6 hours as needed 03/03 completed Benadryl 25 mg oral capsule; Recorded Status: Recorded on: 06/03/20 16 10:15AM; User: [email or web address];In dication : Allergic Rhinitis - (4779 00) Not Available Not Available Not Available neomycin- polymyxin -hydrocor t 3.5 mg-10,000 unit/mL-1 % ear drops,chavo p INSTILL FOUR (4) DROPS IN AFFECTED EAR OR EARS EVERY 8 HOURS FOR 10 DAYS 06/23 completed Not Available Not Available Not Available NuvaRing 0.12 mg-0.015 mg/24 hr vaginal insert 1 vaginal ring by once a month - change on the same date monthly 08/14 completed NuvaRing 0.12-0.0 15 mg/24 hr vaginal ring;Pre scribe Status: Prescrib ed on: 04/10/20 15 1:35PM;D iscontin ued Status: Disconti nued on: 08/14/20 15 11:57AM; User: [email or web address] ;Indicat ion: Pregnanc y Contrace ption - (18.V259 00);Phar Tamareri fied: 04/10/20 15 1:35PM Not Available Not Available Not Available azithromy maria r 500 mg tablet TAKE 1 TABLET BY MOUTH EVERY DAY FOR THREE (3) DAYS 09/11 completed Not Available Not Available Not Available Cryselle (28) 0.3 mg-30 mcg tablet take 1 tablet by oral route once daily 09/22 completed Cryselle (28) 0.3-30 mg-mcg oral tablet;R ecorded Status: Recorded on: 02/27/20 16 5:04PM;U ser: tartern; Printed: 02/27/20 16 Not Available Not Available Not Available Laxative (bisacody l) 5 mg tablet take 1 tablet (5 mg) by oral route once daily 03/12 completed Laxative (bisacod yl) 5 mg oral tablet;R ecorded Status: Recorded on: 02/11/20 11 5:28PM;D iscontin ued Status: Disconti nued on: 03/12/20 11 9:42AM;U ser: [email or web address]; Indicati on: Constipa tion - (5640 ) Not Available Not Available Not Available Martha 0.35 mg tablet Take 1 tablet every day by oral route. 12/01 completed Not Available Not Available Not Available Fish Oil capsule 1 po qD 02/10 completed Replaced /Retired Drug oral capsule; Recorded Status: Recorded on: 08/12/20 08 10:04PM; Disconti nued Status: Disconti nued on: 02/11/20 11 5:28PM;U ser: [email or web address] Not Available Not Available Not Available chromium picolinat e 400 mcg tablet take 2 tablets by oral route daily 03/12 completed chromium picolina te 400 mcg oral tablet;R ecorded Status: Recorded on: 02/11/20 11 5:28PM;D iscontin ued Status: Disconti nued on: 03/12/20 11 9:42AM;U ser: [email or web address] Not Available Not Available Not Available Green Tea capsule take 1 capsule by oral route daily 01/03 completed Green Tea Oral capsule; Recorded Status: Recorded on: 11/15/19 13 11:03AM; Disconti nued Status: Disconti nued on: 01/03/20 13 1:33PM;U ser: [email or web address] Not Available Not Available Not Available bupropion HCl XL 150 mg 24 hr tablet, extended release Take 1 tablet every day by oral route. 09/07 completed Not Available Not Available Not Available Fiber Therapy (methylce llulose) 500 mg tablet take 1 tablet by oral route daily 03/12 completed Fiber Therapy (m-cellu lose) 500 mg oral tablet;R ecorded Status: Recorded on: 02/11/20 11 5:28PM;D iscontin ued Status: Disconti nued on: 03/12/20 11 9:42AM;U ser: [email or web address] Not Available Not Available Not Available Ortho-Cyc gabriel (28) 0.25 mg-35 mcg tablet take 1 tablet by oral route once daily for 28 days 04/10 completed Ortho-Cy clen (28) 0.25-35 mg-mcg oral tablet;c omment: switch to NuvaRing per DRW;Pres cribe Status: Prescrib ed on: 03/29/20 15 10:42AM; Disconti nued Status: Disconti nued on: 04/10/20 15 1:34PM;U ser: neal; Est. Completi on: 03/14/20 16;Indic ation: Dysmenor raz - (625.3); Pharmacy Verified : 03/29/20 15 10:42AM Not Available Not Available Not Available duloxetin e 30 mg capsule,d elayed release TAKE ONE (1) CAPSULE BY MOUTH EVERY DAY FOR THE FIRST WEEK THEN INCREASE TO ONE CAPSULE TWICE DAILY active Not Available Not Available No t Available Cinnamon 500 mg capsule take 1 capsule by oral route daily 07/06 completed Cinnamon 500 mg oral capsule; Recorded Status: Recorded on: 04/28/20 12 10:06AM; Disconti nued Status: Disconti nued on: 07/06/20 12 10:13AM; User: avel Not Available Not Available Not Available Tricor 145 mg tablet Take 1 tablet every day by oral route. 09/24 completed Not Available Not Available Not Available Mucinex D 60 mg-600 mg tablet,ex tended release take 1 tablet by oral route every 12 hours as needed for 10 days 12/03 completed Mucinex D 60-600 mg oral tablet extended release 12 hr;Recor ded Status: Recorded on: 10/09/20 11 4:20PM;D iscontin ued Status: Disconti nued on: 12/03/19 12 10:55AM; User: elva ;Est. Completi on: 10/29/20 11;Indic ation: Cold Symptoms - (08.4600 00);Prin radha: 10/09/20 11 Not Available Not Available Not Available Diuretic qd 03/12 completed diuretic po caffeine ;Recorde d Status: Recorded on: 02/11/20 11 5:28PM;D iscontin ued Status: Disconti nued on: 03/12/20 11 9:42AM;U ser: [email or web address]; Indicati on: weight gain - (-5) Not Available Not Available Not Available Cayenne qd 03/12 completed cayenne po 40,000 units;Re corded Status: Recorded on: 02/11/20 11 5:28PM;D iscontin ued Status: Disconti nued on: 03/12/20 11 9:42AM;U ser: [email or web address]; Indicati on: energy loss - (-5) Not Available Not Available Not Available clonidine .2 mg BID active Not Available Not Available No t Available Elavil 1-2 pm prn sleep 03/16 completed elavil 25;Recor ded Status: Recorded on: 03/14/20 14 5:11PM;D iscontin ued Status: Disconti nued on: 03/16/20 15 1:17PM;U ser: neuss;In dication : - (-5) Not Available Not Available Not Available niacin 01/27 completed Not Available Not Available Not Available Lamictal 03/26 completed Lamictal Oral;Rec orded Status: Recorded on: 03/12/20 12 12:50PM; Disconti nued Status: Disconti nued on: 03/26/20 12 11:00AM; User: [email or web address] Not Available Not Available Not Available daily 07/06 completed Oral;Rec orded Status: Recorded on: 03/12/20 11 9:43AM;D iscontin ued Status: Disconti nued on: 07/06/20 12 10:13AM; User: [email or web address] Not Available Not Available Not Available Vivitrol 380 mg intramusc ular suspensio n,extende d release INJECT 380 MG INJECT INTRAMUS CULARLY EVERY MONTH 06/24 completed Not Available Not Available Not Available Fish Oil 1,000 mg capsule take 1 capsule by oral route daily 01/03 completed Fish Oil 1,000 mg oral capsule; Recorded Status: Recorded on: 11/15/19 13 11:03AM; Disconti nued Status: Disconti nued on: 01/03/20 13 1:33PM;U ser: [email or web address] Not Available Not Available Not Available Symbicort 160 mcg-4.5 mcg/actua tion HFA aerosol inhaler INHALE TWO (2) PUFFS BY MOUTH TWICE DAILY active Not Available Not Available No t Available doxylamin e succinate prn 05/22 completed doxylami ne succinat e oral as directed ;Recorde d Status: Recorded on: 03/14/20 14 4:17PM;D iscontin ued Status: Disconti nued on: 05/22/20 14 4:01PM;U ser: neuss;In dication : insomnia - (-5) Not Available Not Available Not Available Cranberry + po qd 03/12 completed cranberr y Oral 2000mg;R ecorded Status: Recorded on: 02/11/20 11 5:28PM;D iscontin ued Status: Disconti nued on: 03/12/20 11 9:42AM;U ser: [email or web address]; Indicati on: energy - (-5) Not Available Not Available Not Available guaifenes in ER 1,200 mg tablet, extended release 12 hr 09/07 completed Not Available Not Available Not Available Viibryd 10 mg (7)-20 mg (7)-40 mg(16) tablets in a dose pack take as directed 11/15 completed Viibryd 10 mg (7)-20 mg (7)-40 mg (16) oral tablets, dose pack;Rec orded Status: Recorded on: 09/20/20 12 9:35AM;D iscontin ued Status: Disconti nued on: 11/15/19 13 11:03AM; User: Natalie Singh on: 12/19/19 13;Print ed: 09/20/20 12 Not Available Not Available Not Available Linzess 145 mcg capsule 10/02 completed Not Available Not Available Not Available Fetzima 40 mg capsule,e xtended release take 1 capsule (40 mg) by oral route [facility] the same time each day 03/12 completed Fetzima 40 mg oral capsule, extended release 24 hr;[facility] ribe Status: Prescrib ed on: 09/14/20 15 4:20PM;U ser: [email or web address];Es makayla Completi on: 03/12/20 16;Pharm [email or web address] ied: 09/14/20 15 4:20PM Not Available Not Available Not Available Otezla 30 mg tablet TAKE ONE (1) TABLET BY MOUTH TWICE DAILY active Not Available Not Available No t Available Otezla Starter 10 mg (4)-20 mg (4)-30 mg(47) tablets in a dose pack 10/02 completed Not Available Not Available Not Available Vitals Date Recorded Body height Body mass index (BMI) Body weight Systolic blood pressure Diastolic blood pressure Provider Name and Address Organization Details Last Updated DateTime 11/11/2021 157.48 cm 36.2 kg/m2 46681.29 g 124 mm[Hg] 80 mm[Hg] Bere Brittni [place] - [facility] 13:08:05 Date Recorded Body height Body mass index (BMI) Body weight Systolic blood pressure Diastolic blood pressure Provider Name and Address Organization Details Last Updated DateTime 06/24/2024 157.48 cm 35.3 kg/m2 95112.33 g 135 mm[Hg] 75 mm[Hg] Fany Sherrill [place] - [facility] 16:14:32 Date Recorded Body height Body mass index (BMI) Body weight Systolic blood pressure Diastolic blood pressure Provider Name and Address Organization Details Last Updated DateTime 09/11/2022 157.48 cm 33.8 kg/m2 14112.59 g 112 mm[Hg] 80 mm[Hg] Kristin Shane [place] - [facility] 14:09:49 Date Recorded Body height Body mass index (BMI) Body weight Systolic blood pressure Diastolic blood pressure Provider Name and Address Organization Details Last Updated DateTime 10/02/2021 157.48 cm 35.1 kg/m2 62126.74 g 122 mm[Hg] 84 mm[Hg] Ana Rodríguez [place] - [facility] 14:21:11 Date Recorded Body height Body mass index (BMI) Body weight Systolic blood pressure Diastolic blood pressure Provider Name and Address Organization Details Last Updated DateTime 10/23/2021 157.48 cm 35.7 kg/m2 70178.51 g 142 mm[Hg] 86 mm[Hg] Ana Rodríguez [place] - [facility] 13:10:26 Social History Question Answer Notes LastModified by Organizat ion Details LastModified Time Tobacco Smoking Status Never Smoker Princess muñoz, [place] - [facility] 09/22/2016 14:39:31 Do You Have An Advance Directive? No Information not available 09/22/2016 Are You Blind Or Do You Have Difficulty Seeing? No Information not available 09/22/2016 Is Blood Transfusion Acceptable In An Emergency? Yes Information not available 09/22/2016 What Is Your Level Of Caffeine Consumption? Moderate [email or web address] Information not available 06/24/2024 How Much Tobacco Do You Chew? None Information not available 09/22/2016 In The 14 Days Before Symptom Onset, Have You Had Close Contact With A Laboratory-confir med COVID-19 While That Case Was Ill? No [email or web address] Information not available 06/24/2024 In The 14 Days Before Symptom Onset, Have You Had Close Contact With A Person Who Is Under Investigation For COVID-19 While That Person Was Ill? No [email or web address] Information not available 06/24/2024 Have You Been To An Area Known To Be High Risk For COVID-19? No [email or web address] Information not available 06/24/2024 Are You Deaf Or Do You Have Serious Difficulty Hearing? No Information not available 09/22/2016 What Type Of Diet Are You Following? REGULAR Information not available 09/22/2016 Which Illicit Or Recreational Drugs Have You Used? Gummies Information not available 06/24/2024 Have You Processed Blood Or Body Fluids From An Ebola Virus Disease Patient Without Appropriate PPE? No [email or web address] Information not available 06/24/2024 Do You Reside In Or Have You Traveled To An Area Where Ebola Virus Transmission Is Active? No [email or web address] Information not available 06/24/2024 What Is The Highest Grade Or Level Of School You Have Completed Or The Highest Degree You Have Received? [id number] [email or web address] Information not available 06/24/2024 Have There Been Any Changes To Your Family Or Social Situation? No [email or web address] Information no t available 06/24/2024 What Is The Fluoride Status Of Your Home? Unknown [email or web address] Information not available 06/24/2024 Have You Recently Or Are You Planning To Travel To An Area With Zika Virus? No [email or web address] Information not available 06/24/2024 Live Alone Or With Others? With Others Information not available 09/22/2016 Do You Have A Medical Power Of Behavioral Consultant? No [email or web address] Information not available 06/24/2024 What Was The Date Of Your Most Recent Tobacco Screening? 06/24/2024 [email or web address] Information not available 06/24/2024 How Many Children Do You Have? 1 Information not available 09/22/2016 Performs Monthly Self-breast Exam? No Information no t available 09/22/2016 Do You Use Protection During Sex? No [email or web address] Information not available 06/24/2024 Do You Use Protection Against STDs? No Information not available 06/24/2024 What Is Your Relationship Status? Information not available 09/22/2016 Seat Belts Used Routinely Yes Information not available 09/22/2016 Are You Sexually Active? Yes Information not available 06/24/2024 Do You Have Smoke And Carbon Monoxide Detectors In Your Home? Yes [email or web address] Information not available 06/24/2024 Are You Passively Exposed To Smoke? Yes [email or web address] Information no t available 06/24/2024 How Much Tobacco Do You Smoke? No Information not available 12/01/2019 General Stress Level High Information not available 09/22/2016 Do You Use Sunscreen Routinely? Yes Information not available 09/22/2016 How Many Years Have You Smoked Tobacco? 0 Information not available 12/01/2019 Do You Have Difficulty Walking Or Climbing Stairs? No Information not available 09/22/2016 What Contraceptive Method Was Reported At Start Of This Visit? None [email or web address] Information not available 06/24/2024 Do You Want To Talk About Contraception Or Prevention During Your Visit Today? No - I Do Not Want To Talk About Contraception Today Because I Am Here For Something Else [email or web address] Information not available 06/24/2024 How Many Years Have You Used E-cigarettes Or Vape? 2 [email or web address] Information not available 06/24/2024 Do You Have Any Future Plans To Get ? No, I Don't Want To Become Information not available 06/24/2024 What Is Your Reason For Having No Contraceptive Method At Start Of This Visit? Other [email or web address] Information not available 06/24/2024 Sex: Female Functional Status Question Answer Note LastModified by Organizat ion Details LastModified Time Do you or have you ever used smokeless tobacco? Never used smokeless tobacco [email or web address] Information not available 12/01/2019 Are you currently employed? Yes Information not available 09/22/2016 Do you have transportation difficulties? Yes Information not available 06/24/2024 Are you able to care for yourself? Yes [email or web address] Information n ot available 06/24/2024 Do you have difficulty dressing or bathing? No Information not available 09/22/2016 Do you or have you ever used e-cigarettes or vape? Current user of electronic cigarettes [email or web address] Information not available 06/24/2024 What is your exercise level? None Information not available 09/22/2016 Do you use any illicit or recreational drugs? Yes [email or web address] Information not available 06/24/2024 Do you or have you ever used any other forms of tobacco or nicotine? No [email or web address] Information not available 06/24/2024 What is your level of alcohol consumption? None 10 months sober [email or web address] Information not available 06/24/2024 What is your status? Not [email or web address] Information no t available 06/24/2024 Are you able to walk? [email or web address] Information not available 09/24/2017 Do you have difficulty doing errands alone? 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 [id number] [email or web address] Information not available 06/24/2024 Do you have difficulty concentrating, remembering or making decisions? No Information no t available 09/22/2016 Family History Relationship Description Onset Age of this Age Resolved Age Notes LastModified by Organization Details LastModified Time Unspecified Relation Diabetes mellitus Not available 2016 15:33:40 Medical History Condition Response Pancreatitis N Other N Atrial Fibrillation N congenital heart disease N Blood Diseases N Kidney Stones N Hyperthyroidism N Rheumatoid arthritis N Blood Transfusion N Erectile Dysfunction N amputation N Skin Lesions N COPD N Depression N Pneumonia N Incontinence N Murmur N Edema N Alzheimer's Disease N Migraine Headaches N Tobacco Abuse N Anxiety Disorder Y Hemorrhoids N Obesity N Vision or Eye Problems N Restless Leg Syndrome N Arthritis N Infertility N Polyps N Acid Reflux (GERD) N Cancer N Stroke N Varicosities N Tendonitis N Crohn's Disease N Hypercholesterolemia N Skin Cancer N Fibromyalgia N Headaches N Anal Fissure N Irritable Bowel Syndrome N Kidney Disease N Heart Problems N Ear or Hearing Problems N Hospitalizations N Gallstones N Kidney or Bladder Problems N Goiter N Acne N Eating Disorder N Young's Esophagus N Hypertriglyceridemia N Constipation N Embolism N Vitamin B12 Deficiency N AIDS/HIV N Myocardial Infarction N Asthma N Mitral Valve Disorders N Vertigo N Hepatitis N Thyroid Cancer N Neuropathy N History of DVT N Chicken Pox N Autism Spectrum Disorder (ASD) N Von Willebrands Disease N Thrombophilias N Breast Cancer N Hernia N Plantar Fasciitis N Lung Disease N Hypothyroidism N Developmental or Behavioral Disorders N Defects or Inherited Disease N Breast Problem N Difficulty Swallowing N Ovarian Cyst N Anesthesia Complications N Testosterone Deficiency N Head Injury/Concussion N Interstitial Cystitis N Congenital Anomalies N Hypoglycemia N Blood clot N Vitamin D Deficiency N Cellulitis N Endometriosis N Bladder or Kidney Problems N Colorectal Cancer N Liver Disease N Panic Disorder N Schizophrenia N Spina Bifida N Osteoarthritis N Parkinson's Disease N STI N Esophagitis N Angina N Thyroid Problems N GI Problems N ADD/ADHD N Anemia N Multiple Sclerosis N Abnormal PAP Y Lumbago N Mental Illness N Psychiatric Illness N Diabetes N Ovarian Cancer N Seizures/Epilepsy N Congestive Heart Failure (CHF) N Hyperlipidemia Y Syncope N Insomnia N Eczema N Abuse/Domestic Violence N Attention Deficient Disorder N Dementia N Ulcerative colitis N Cerebrovascular Disease N Depression N Guillain-[place] N Sleep Apnea N Aneurysm N Bronchitis N Heart Disease N Hypertension Y Pre-Eclampsia N Suicidal Ideation N Osteoporosis N Gynecological History Statement/Question Response Abnormal Pap Y Date of Last Mammogram Flow Moderate Date of LMP 06/12/2024 STIs/STDs Y Duration of Flow (days) 4 Current Control Method None Age at Menarche 11 Age at First Child 25 Last Annual Exam/Provider 12/01/2019 w/DT Date of Last Colonoscopy Frequency of Cycle (Q days) Most Recent Bone Density Sexually Active? Y Date of Last Cervical Culture 06/24/2024 Menses Monthly Y Date of Last Pap Smear 06/24/2024 Sexual Problems? N LMP Approximate Desired Control Method None Obstetrics History GPAL:G 3 P 1 0 2 1 Type Value Full Term 1 Spontaneous 2 Living 1 Total 3 Immunizations Vaccine Type Date Status Note Provider Duy e and Address Organization Details Recorded Time tetanus toxoid, adsorbed 02/10/2012 completed Not Available [facility] 0 02:21:52 Past Encounters Encounter ID Performer Location Encounter Start Date Encounter Closed Date Diagnosis/Indication Diagnosis SNOMED-CT Code Diagnosis ICD10 Code Diagnosis Note [id number] [facility] [address] [place] [address] 08/22/2013 00:00:00 [id number] [facility] [address] [place] [address] 09/19/2013 00:00:00 [id number] [facility] [address] [place] [address] 12/20/2013 00:00:00 [id number] [facility] [address] [place] [address] 12/20/2013 00:00:00 [id number] [facility] [address] [place] [address] 01/11/2014 00:00:00 [id number] [facility] [address] [place] [address] 01/25/2014 00:00:00 [id number] [facility] [address] [place] [address] 02/23/2014 00:00:00 [id number] [facility] [address] [place] [address] 03/14/2014 00:00:00 [id number] [facility] [address] [place] [address] 02/10/2011 00:00:00 [id number] [facility] [address] [place] [address] 03/12/2011 00:00:00 [id number] [facility] [address] [place] [address] 06/23/2011 00:00:00 [id number] [facility] [address] [place] [address] 06/30/2011 00:00:00 [id number] [facility] [address] [place] [address] 08/05/2011 00:00:00 [id number] [facility] [address] [place] [address] 10/09/2011 00:00:00 [id number] [facility] [address] [place] [address] 12/03/2011 00:00:00 [id number] [facility] [address] [place] [address] 02/10/2012 00:00:00 [id number] [facility] [address] [place] [address] 08/22/2008 00:00:00 [id number] [facility] [address] [place] [address] 12/15/2005 00:00:00 [id number] [facility] [address] [place] [address] 05/22/2006 00:00:00 [id number] [facility] [address] [place] [address] 11/13/2009 00:00:00 [id number] [facility] [address] [place] [address] 04/18/2015 00:00:00 [id number] [facility] [address] [place] [address] 10/08/2010 00:00:00 [id number] [facility] [address] [place] [address] 05/14/2015 00:00:00 [id number] [facility] [address] [place] [address] 02/10/2011 00:00:00 [id number] [facility] [address] [place] [address] 08/14/2015 00:00:00 [id number] [facility] [address] [place] [address] 02/10/2012 00:00:00 [id number] [facility] [address] [place] [address] 03/12/2012 00:00:00 [id number] [facility] [address] [place] [address] 11/29/2015 00:00:00 [id number] [facility] [address] [place] [address] 07/06/2012 00:00:00 [id number] [facility] [address] [place] [address] 03/26/2012 00:00:00 [id number] [facility] [address] [place] [address] 08/09/2012 00:00:00 [id number] [facility] [address] [place] [address] 04/28/2012 00:00:00 [id number] [facility] [address] [place] [address] 10/04/2012 00:00:00 [id number] [facility] [address] [place] [address] 05/31/2012 00:00:00 [id number] [facility] [address] [place] [address] 07/06/2012 00:00:00 [id number] [facility] [address] [place] [address] 11/15/2012 00:00:00 [id number] [facility] [address] [place] [address] 01/03/2013 00:00:00 [id number] [facility] [address] [place] [address] 01/04/2007 00:00:00 [id number] [facility] [facility] [address] [place] [address] 04/15/2013 00:00:00 [id number] [facility] [address] [place] [address] 01/11/2008 00:00:00 [id number] [facility] [address] [place] [address] 06/01/2008 00:00:00 [id number] [facility] [address] [place] [address] 05/22/2014 00:00:00 [id number] [facility] [address] [place] [address] 04/21/2013 00:00:00 [id number] [facility] [address] [place] [address] 09/19/2008 00:00:00 [id number] [facility] [address] [place] [address] 08/08/2014 00:00:00 [id number] [facility] [address] [place] [address] 01/15/2015 00:00:00 [id number] [facility] [address] [place] [address] 10/31/2008 00:00:00 [id number] [facility] [address] [place] [address] 03/16/2015 00:00:00 [id number] [facility] [address] [place] [address] 12/04/2008 00:00:00 [id number] [facility] [address] [place] [address] 04/18/2015 00:00:00 [id number] [facility] [address] [place] [address] 11/13/2009 00:00:00 [id number] [facility] [address] [place] [address] 05/18/2013 00:00:00 [id number] [facility] [address] [place] [address] 05/22/2014 00:00:00 [id number] [facility] [address] [place] [address] 12/26/2015 00:00:00 [id number] [facility] [address] [place] [address] 02/19/2016 00:00:00 [id number] [facility] [address] [place] [address] 04/09/2016 00:00:00 [id number] [facility] [address] [place] [address] 06/03/2016 00:00:00 [id number] [facility] [address] [place] [address] 07/18/2016 00:00:00 [id number] [facility] [address] [place] [address] 12/26/2015 00:00:00 [id number] ENEDELIA Martinez [employer] [address] [facility] [place] [address] 09/22/2016 14:17:47 09/22/2016 15:22:11 Routine gynecologic examination done [id number] 9101 Z01.419 Depression screening 171 755137 Z13.89 Hypertensi on screening 572486918 Z13.6 continue regular f/u with PCP Screening for malignant neoplasm of cervix 151369411 Z12.4 [facility] slip given for pt to obtain results-wi ll call if abnormal Diet education 41917148 Z71.3 Encourage healthy eating/dec reased fats, sugars, fried foods Counseling 828833653 Z71 .9 Encouraged regular exercise 30-40min/d ay 4-5 days/wk Contracept ion care management 508208484 Z30.9 Vaccine de clined by patient 2288779788 02 Z28.21 declines flu shot Body mass index 30+ - obesity 282246118 Z68.38 Cyst of vulva 41648036 N 90.7 recommend to see dermatolog y Anxiety 28188337 F41.9 regular f/u with Sommer Trinidad Hyperlipidemia 84458072 E78.5 f/u with PCP [id number] ENEDELIA Martinez [employer] [address] [place] [address] [place] [address] 09/24/2017 14:36:01 09/24/2017 15:27:50 Routine gynecologic examination done 2909705078 9101 Z01.419 Depression screening 171 046420 Z13.89 Hypertensi on screening 190786395 Z13.6 Screening for malignant neoplasm of cervix 270425894 Z12.4 Diet education 85749911 Z71.3 Encourage healthy eating/dec reased fats, sugars, fried foods Counseling 967119880 Z71 .9 Encouraged regular exercise 30-40min/d ay 4-5 days/wk Body mass index 30+ - obesity 735919270 Z68.34 Dysmenorrhea 217572404 N 94.6 [id number] Rom Caldera MD [place] [address] [place] [address] [address] 09/24/2016 10:55:09 09/24/2016 13:15:47 Anxiety 75224501 F41.9 Insomnia 739909191 G47.0 0 Hyperlipidemia 95463036 E78.5 Renewal of prescription 508734314 Z76.0 [id number] Rom Caldera MD [facility] [address] [place] [address] 12/10/2016 16:54:23 12/11/2016 07:52:58 Anxiety 37392307 F41.9 Hypertensive disorder 38 952635 I10 Mixed hyperlipidemia 267 283144 E78.2 [id number] Rom Caldera MD [address] [place] [address] 01/27/2017 16:51:48 01/29/2017 09:42:10 Anxiety 66789706 F41.9 Hypertensive disorder 38 886666 I10 Renewal of prescription 995229158 Z76.0 [id number] Rom Caldera MD [address] [place] [address] 06/12/2017 16:07:48 06/12/2017 18:29:11 Anxiety 14460308 F41.9 Hyperhidrosis 295786508 R61 Dysuria 08006002 R30.0 Mixed hyperlipidemia 267 745325 E78.2 Hypertensive disorder 38 201507 I10 [id number] Rom Caldera MD [address] [place] [address] 10/12/2017 15:17:22 10/12/2017 17:34:11 Anxiety 68368439 F41.9 Hypertensive disorder 38 187813 I10 Nausea 983076631 R11.0 Body mass index 30+ - obesity 233884618 Z68.39 Insomnia 226077127 G47.0 0 Fatigue 73574380 R53.83 Renewal of prescription 494161176 Z76.0 [id number] Rom Caldera MD [address] [place] [address] 02/19/2018 16:56:09 02/19/2018 18:11:36 Tremor 19990771 R25.1 Hypertensive disorder 38 940800 I10 Anxiety 82544198 F41.9 Nausea 198579125 R11.0 Seasonal a llergic rhinitis 421095313 J30.2 Mixed hyperlipidemia 267 734740 E78.2 Unexplaine d weight loss 819803600 R63.4 Vomiting 979122048 R11.1 0 Body mass index 30+ - obesity 095451505 Z68.39 [id number] Rom Caldera MD [facility] [address] [address] 03/03/2018 09:01:15 03/03/2018 10:51:12 Hyperglycemia 21928086 R73.9 Mixed hyperlipidemia 267 261339 E78.2 Insomnia 615487841 G47.0 0 Hypertensive disorder 38 520237 I10 Anxiety 81152195 F41.9 Tremor 60080529 R25.1 Liver enzy mes level above reference range 374557128 R74.8 Fatigue 34370291 R53.83 [id number] Rom Caldera MD [facility] [address] [place] [address] 05/05/2018 10:12:23 05/05/2018 12:26:00 Anxiety 99273660 F41.9 Persistent insomnia 1919 95289 G47.09 Hypertensive disorder 38 211840 I10 Mixed hyperlipidemia 267 884933 E78.2 Fatigue 36145120 R53.83 [id number] ENEDELIA [place] [employer] [address] [place] [address] [place] [address] 12/01/2019 11:23:28 12/01/2019 12:23:52 Routine gynecologic examination done 8116382838 9101 Z01.419 Depression screening 171 346796 Z13.89 Hypertensi on screening 909944741 Z13.6 Screening for malignant neoplasm of cervix 182632814 Z12.4 Diet education 71228458 Z71.3 Encourage healthy eating/dec reased fats, sugars, fried foods Counseling 774921707 Z71 .82 Encouraged regular exercise 30-40min/d ay 4-5 days/wk Examinatio n of blood pressure 990885298 Z01.30 Vaccine de clined by patient 3072864643 02 Z28.21 Pt declined flu vaccine today. Hypertensive disorder 38 973804 I10 Body mass index 30+ - obesity 496820102 Z68.32 [id number] DO Varun Stubbs [employer] [address] [place] [address] [place] [address] 09/07/2020 09:46:24 09/07/2020 10:58:53 Abscess of groin 09989334 L02.315 [id number] MD Varun Langford [employer] [address] [place] [address] [place] [address] 10/26/2020 14:49:01 10/26/2020 15:28:32 Abscess of vulva 73098423 N76.4 Candidiasis of vagina 72 380777 B37.3 [id number] MD Shayla [place] [employer] [address] [place] [address] [place] [address] 10/02/2021 14:13:52 10/02/2021 14:46:26 Abscess of skin and/or subcutaneous tissue 71401643 L02.91 Candidiasis of vagina 72 871253 B37.3 Screening for malignant neoplasm of breast 670881447 Z12.39 Screening for malignant neoplasm of cervix 044472513 Z12.4 [id number] MD Varun Langford [employer] [address] [place] [address] [place] [address] 10/23/2021 13:04:00 10/23/2021 13:23:09 Venereal disease screening 044315635 Z11.3 [id number] Enedelia Flanagan DO [place] [employer] [address] [place] [address] [place] [address] 11/11/2021 12:56:06 11/11/2021 13:19:21 Abscess of vulva 52971524 N76.4 [id number] Enedelia Flanagan DO [place] [employer] [address] [place] [address] [place] [address] 09/11/2022 13:52:38 09/11/2022 14:23:37 Abscess of vulva 05613139 N76.4 Screening for malignant neoplasm of cervix 827066167 Z12.4 [id number] ENEDELIA Jaquez [employer] [address] [place] [address] [place] [address] 06/24/2024 15:05:05 06/24/2024 16:44:33 Routine gynecologic examination done 7230405708 9101 Z01.419 Depression screening 171 509894 Z13.31 PHQ-9 completed today of a 17. Diet education 17100463 Z71.3 Encouraged diet high in healthy fats such as: nuts, avocado, eggs, jonatan seeds, and avocado oil. High in healthy proteins such as: lean means such as chicken breast, tiliapa, and beans.Low and healthy carbohydra thuy such as fruit, oats, sweet potatoes, and quinoa. Counseling 505575707 Z71 .82 Exercise counselanabella patricia Patient encouraged to exercise 30 minutes 5 days a week. Examinatio n of blood pressure 472774485 Z01.30 Hypertensive disorder 38 173240 I10 Screening for malignant neoplasm of cervix 724627989 Z12.4 Screening mammography 24 819600 Z12.31 Body mass index 30+ - obesity 271014530 Z68.35 Obesity 683684617 E66.9 Depressive disorder 3548 9007 F32.A Talk extensivel y with pt about current PHQ-9 of 17 today. She states if she begins to feel suicidal she will call 911, but states she is not currently suicidal and feels safe to go home. Nicotine-f illed electronic cigarette user 419205188 Z72.89 Health Concerns Section Related Observation LastModified by Organization Detai ls LastModified Time None Recorded Concern Status LastModified by Organization Details LastModified Time None Recorded Advance Directives Directive N: Payers Insurance Date Sequence Insurance Name Policy Number Policy Rivera Covered Member ID Rivera Member ID Guarantor Name 02/16/2025 [place] - [facility] [place]ICAID) [facility] [id number] Chekoaj Shepherd [id number] Cheko Shepherd 02/16/2025 [place] [facility] [id number] Chekoaj Shepherd [id number] Chekoaj Shepherd 02/16/2025 1 [id number] Cheko Shepherd [id number] Cheko Shepherd 01/05/2017 1 UNSPECIFIED REMIT PAYOR Cheko Shepherd Notes Date Note Type Note Provider Name and Address Organization Details Recorded Time 10/02/2021 text/html Cheko is here fo r a right groin abscess. She has had abscesses in the past requiring drainage. Denies fevers, chills. Her friend was recently diagnosed with breast cancer, and she would like a breast exam, mammogram, and pap smear as she is behind on these. Emperatriz Sauceda MD [address], [place], [address], [facility] 10/07/2021 10:54:04 10/23/2021 text/html Cheko is here fo r follow up on trichomonas on pap smear. She denies any symptoms and has not been sexually active recently. No abnormal discharge, pain, etc. Emperatriz Sauceda MD [address], [place], [address], [facility] 11/04/2021 12:43:03 11/11/2021 text/html pts presents tomiguel valero for a follow up on her boils. Reports having a boil on the right side of her labia. She used hot water and expressed yellow to blood tinged discharge with odor. After exam, discussed taking antibiotic and continuing with hot compresses. Given precautions. Follow up one week. Enedelia Flanagan DO [address], [place], [address], [facility] 11/12/2021 09:56:00 09/11/2022 text/html Pt here today fo r cyst on R groin. Reports bloody discharge from site.Denies fever or chills. She has not had an annual or pap - it was HPV positive in 2019. Since she is here, will perform pap. Encouraged to schedule annual. Enedelia Flanagan DO [address], [place], [address], [facility] 09/28/2022 12:24:49 06/24/2024 text/html Annual - MOBReported bypatient.History:L ast annual exam: 09/11/2022 Current Contraception: control not practiced;Sexually active: high-risk behavior Preventive measures:Encourage self breast examination; Encourage regular exercise; Encourage no tobacco use; Encourage regular mammograms starting age 40; Followed with yearly pap smears;History of abnormal pap smear/cervical dysplasia;Requests testing for sexually transmitted infections;Needs to schedule mammogram TAMMY is a 43 year old female who comes to the clinic today for her annual wellness exam. Pt reports that she has seen parasites on her tampon for the last few months. She reports that Dr. Caldera, her PCP, has tested her stool for parasites, but it came back negative. She states she does not feel the parasites moving inside of her, but sometimes see's them on her skin and see's them on her tampons . Pt states she isn't sure how she would have contracted the parasite as she has not been sexually active as of recent. Pt denies any other gynecological complaints at this time. Pt denies any vaginal odor, itching, burning, discomfort, lesions, rash, or bumps. Pt denies any recent fever, nausea, vomiting, dysuria, abdominal pain, diarrhea, constipation, significant weight loss or weight gain. Lennie Sandoval, PROCESS SAFETY SPECIALIST [address], [place], [address], [place] - [facility] 06/26/2024 18:06:13 OBGyn Episode No OBEpisode recorded.
--- OUTSIDE RECORDS SUMMARY | 2025-04-25 19:33 | XMS_ITS | Clinical Summary ---
Author Organization [facility] Miya T Address [address] [facility] [place] [address] Phone Care Team Providers Care It Senior Software Engineer Java Name Role Phone Rom Caldera MD Primary Care Provider [phone] Lyle Ponce MD Unavailable Unavailable Allergies No known active allergies Medications * This document contains information received from the source organization and may not represent a complete record from that organization. gabapentin (NEURONTIN) 600 mg Oral Tablet Take 600 mg by mouth 3 times daily. Active PARoxetine (PAXIL) 20 mg Oral Tablet Take 20 mg by mouth daily. Active metoprolol (LOPRESSOR) 100 mg Oral Tablet Take 100 mg by mouth 2 times daily. Active famotidine (PEPCID) 40 mg Oral Tablet Take 1 Tab by mouth every evening. 30 Tab 8 Active Additional Information Patient not taking.Reported on 06/28/2020 linaclotide (LINZESS ORAL) Take by mouth. Active pantoprazole sodium (PROTONIX ORAL) Take by mouth. Active Active Problems Problem Noted Date Diagnosed Date TONEY (generalized anxiety disorder) 04/12/2023 Moderate episode of recurrent major depressive d isorder 04/12/2023 Alcohol abuse 04/12/2023 Metabolic acidosis with incr eased anion gap and accumulation of organic acids 09/22/2018 Lactic acidosis 09/22/2018 Alcohol withdrawal syndrome with complication Acute alcoholic gastritis without hemorrhage Sinus tachycardia 09/22/2018 Surgical History Surgery Date Site/Laterality Comments DENTAL SURGERY Medical History Medical History Date Comments Hypertension Hyperlipidemia Heartburn Family History Medical History Relation Name Comments Diabetes Father Diabetes Mother Relation Name Status Comments Father Mother Social History Tobacco Use Types Packs/Day Years Used Date Smoking Tobacco: Never Smokeless Tobacco: Never Alcohol Use Standard Drinks/Week Comments Yes 36 (1 standard drink = 0.6 oz pu re alcohol) Comments No Sex and Gender Information Value Date Recorded Sex Assigned at Not on file Legal Sex Female 4:57 AM EDT Gender Identity Not on file Sexual Orientation Not on file Obstetrics History Last Filed Vital Signs Vital Sign Reading Time Taken Comments Blood Pressure 118/72 06/28/2020 12:55 PM EDT Pulse 82 06/28/2020 12:55 PM EDT Temperature 36.4 C (97.6 F) 06/28/2020 12:55 PM EDT Respiratory Rate 16 06/28/2020 12:55 PM EDT Oxygen Saturation 100% 09/24/2018 8:21 AM EST Inhaled Oxygen Concentration - - Weight 83.9 kg (185 lb) 06/28/2020 12:55 PM EDT Height 157.5 cm (5' 2 ) 06/28/2020 12:55 PM EDT Body Mass Index 33.84 06/28/2020 12:55 PM EDT Plan of Treatment Health Maintenance Due Date Last Done Comments Annual Wellness Exam 1983 DTaP/TDaP/Td (1 - Tdap) 1999 Hepatitis B Vaccine (1 of 3 - 19+ 3-dose series) 1999 Cervical Cancer Screening 2001 Pap Smear 2001 HPV/Pap Cotest 2010 Breast Cancer Screening 2020 COVID-19 Vaccine ( - 2023-2 5 season) 2024 Influenza Vaccine (Season Ended) 2025 Meningococcal B Vaccine Aged Out No l onger eligible based on patient's age to complete this topic Pneumococcal Vaccine 0-49 Aged Out No longer eligible based on patient's age to complete this topic Insurance [employer] [facility] MEDICAID [facility] MEDICAID Advance Directives For more information, please contact: [phone] Documents on File Type Date Recorded Patient Nurse Extern Expl anation Advance Directives and Livin g Will 10/13/2012 10:22 AM Power of Miner Operator 10/13/2012 10:22 AM Advance Directives/DNR 10/13/2012 ADVANCE DIRECTIVE 10/13/2012 * Full Code (Latest Code Status on File) Date Activated Date Inactivated Comments 09/22/2018 3:34 PM 09/24/2018 3:39 PM Care Teams It Senior Software Engineer Java Relationship Specialty Start Date End Date Rom Caldera MD PCP - General Family Medicine 10/13/12 Lyle Ponce MD Internal Medicine-Rheumatology 06/28/20
--- OUTSIDE RECORDS SUMMARY | 2025-04-25 19:33 | XMS_ITS | Clinical Summary ---
Author Organization Healthcare Address [address] [place] [address] Care Team Providers Care Rn Relief Charge Name Role Phone Unavailable Primary Care Provider Unavailabl e Family History Medical History Relation Name Comments Diabetes Father's Brother Diabetes Maternal Grandmother Diabetes Mother Relation Name Status Comments Father's Brother Maternal Grandmother Mother Social History Tobacco Use Types Packs/Day Years Used Date Smoking Tobacco: Every Day Alcohol Use Standard Drinks/Week Comments Yes 0 (1 standard drink = 0.6 oz pur e alcohol) Comments Unknown Sex and Gender Information Value Date Recorded Sex Assigned at Not on file Legal Sex Female 6:29 PM EDT Gender Identity Not on file Sexual Orientation Not on file Last Filed Vital Signs Vital Sign Reading Time Taken Comments Blood Pressure - - Pulse - - Temperature - - Respiratory Rate - - Oxygen Saturation - - Inhaled Oxygen Concentration - - Weight 89.9 kg (198 lb 4.9 oz) 11/28/2016 2:58 P M EST Height 160 cm (5' 3 ) 11/28/2016 2:58 PM EST Body Mass Index 35.13 11/28/2016 2:58 PM EST Plan of Treatment Not on file
--- OUTSIDE RECORDS SUMMARY | 2025-04-25 19:33 | XMS_ITS | Data Portability ---
Author Organization [facility] Address [address] [place] [address] Assessment No assessment recorded. Plan of Treatment Reminders Order Date Submit Date Provider Last Modified By Organization Details Last Modified Time Details Appointments None recorded. Lab None recorded. Referral None recorded. Procedures None recorded. Surgeries None recorded. Imaging XR, shoulder 2022 023 carlos [facility], [address] [place] [address] [place], [address], 3 12:01:27 XR, shoulder 2022 023 carols [facility], [address] [place] [address] [place], [address], 3 12:00:59 XR, shoulder 2022 023 carlos [facility], [address] [place] [address] [place], [address], 3 11:31:48 CT, shoulder, w/o contrast 2022 023 [email or web address] [place] ([facility] Sched[facility]), [address] [place] [address] [place], [address], 4 15:43:04 Medication Orders [place] 5 mg-325 mg tablet [address], [place], [address], 3 12:25:38 [place] 5 mg-325 mg tablet 20[address], [address], 3 12:28:54 ibuprofen 800 mg tablet 2022 [address], [address], 3 09:30:44 [place] 5 mg-325 mg tablet 2022 [email or web address], [address], 3 11:23:00 Patient TargetsNo targets recorded. Patient InstructionsNo instructions recorded. Reason for Referral None Reported. Results Created Date Observation Date Name Description Value Unit Range Abnormal Flag Note LastModifiedBy Organization Detail LastModifiedTime 07/27/2007/27/2023 - CT lower ext w/o cont RT [facility] Name: Keiry SHEPHERD [facility] Phys: Alicia FLORENCE,[place] [address] : 1979 Age: 42 Sex: F Acct: [id number] Loc: G.CT PHONE #: [phone] Exam Date: 2022 Status : REG CLI FAX #: [phone] Rad# [id number] Unit# [id number] Admit Date: 2022 EXAMS: CPT CODE: [id number] [place] LOWER EXT W/[place] [address] CLINIC AL INFORM ATION: Should er pain [...] M.D. PAGE 1 Signed Report (DENISSE NUED) [facility] Name: Keiry SHEPHERD [facility] [place] A Partager Phys: Alicia FLORENCE,Prabhu [place] [address] : 1979 Age: 42 Sex: F Acct: [id number] Loc: G.CT PHONE #: [phone] Exam Date: 2022 Status : REG CLI FAX #: Rad# [id number] Unit# [id number] Admit Date: 2022 EXAMS: CPT CODE: [id number] [place] LOWER EXT W/[place] [address] CC: Rom Caldera MD; Scar Vargas MD [...] HERRON Consul ting Provid er: MITCH DAVIS [email or web address] [facility] [address] [facility] , [place], [address], 07/27/2023 15:29:41 07/31/20 23 XR, shoul michael No observ ation record ed. MONICA [address] [place], [address], 07/31/2023 09:25:50 08/10/20 23 XR, shoul michael No observ ation record ed. [address] [place], [address], 08/10/2023 09:26:22 10/23/20 23 XR, shoul michael No observ ation record ed. [address] [place], [address], 10/23/2023 08:54:58 Result Notes None recorded. Procedures Surgical History Date Name Laterality Status Provider Name and Address Organization Details Recorded Time 11/09/2018 Other completed Evelyn Garvin LP [facility] [place] 07/24/2023 10:08:45 Imaging Results None recorded. Procedure Notes None [...] 80 mm[Hg] Ale Paul [place] - LPNT [facility] [place] 3 08:48:09 Social History Question Answer Notes LastModified by Organizat ion Details LastModified Time Do You Have An Advance Directive? No [email or web address] Information not available 07/24/2023 Are You Blind Or Do You Have Difficulty Seeing? No [email or web address] Information not available 07/24/2023 What Was The Date Of Your Most Recent Tobacco Screening? 07/24/2023 [email or web address] Information not available 07/24/2023 Are You Passively Exposed To Smoke? No [email or web address] Information not available 07/24/2023 Sex: Unknown Functional Status Question Answer Note LastModified by Organizat ion Details LastModified Time Do you use any illicit or recreational drugs? Yes [email or web address] Information not available 07/24/2023 What is your level of alcohol consumption? Moderate [email or web address] Information not available 07/24/2023 Mental Status Question Answer Note LastModified by Organization D etails LastModified Time Do you feel stressed (tense, restless, nervous, or anxious, or unable to sleep at night)? [id number] [email or web address] Information not available 07/24/2023 Family History Relationship Description Onset Age of this Age Resolved Age Notes LastModified by Organization Details LastModified Time Father No current problems or disability Not available 07/24 10:10:13 Mother No current problems or disability [email or web address] Not available 07/24 10:10:13 Medical History Condition Response Autoimmune disease Y Vision or Eye Problems Y Arthritis Y Rheumatoid Arthritis Y Diabetes Y Seizures/Epilepsy Y Back Problems Y Substance Abuse Y Hypertension Y Gynecological History Statement/Question Response Current Control Method None Sexually Active? N Obstetrics History GPAL:G 0 P 0 0 0 0 Past Encounters Encounter ID Performer Location Encounter Start Date Encounter Closed Date Diagnosis/Indication Diagnosis SNOMED-CT Code Diagnosis ICD10 Code Diagnosis Note [id number] [facility] [address] [facility] 07/24/2023 09:36:48 07/24/2023 10:28:29 Closed fracture of greater tuberosity of proximal right humerus [id number] S42.251A [id number] [facility] [place] [address] 07/31/2023 08:29:54 07/31/2023 09:31:22 Closed fracture of greater tuberosity of proximal right humerus [id number] 2265098 S42.251A [id number] FANI MARIE DO [place] [address] 9 08/10/2023 09:12:55 08/10/2023 10:23:48 Closed fracture of greater tuberosity of proximal right humerus [id number] 9039533 S42.251D [id number] FANI MARIE DO [facility] [place] [address] 10/23/2023 08:29:21 10/23/2023 09:31:33 Closed fracture of greater tuberosity of proximal right humerus 1774998668 2167382 S42.251D Health Concerns Section Related Observation LastModified by Organization Fiona gomez LastModified Time None Recorded Concern Status LastModified by Organization Details LastModified Time None Recorded Advance Directives Directive N: Payers Insurance Date Sequence Insurance Name Policy Number Policy Rivera Covered Member ID Rivera Member ID Guarantor Name 01/19/2024 1 [place] [id number] Keyanna Shepherd [id number] Keyanna Shepherd 07/24/2023 1 [place] [id number] Keyanna Cordobat [id number] Keyanna Cordobat Notes Date Note Type Note Provider Name and Address Organization Details Recorded Time 07/24/2023 text/html This is a 42 yea r old right handed female here today for right shoulder injury. 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 Does not know how she injured her shoulder. Went to [facility] ER xrays taken. E3 JS FANI MARIE [address] [place] [address],[address], [place], [address], [facility] & [place] 07/24/2023 11:24:32 07/31/2023 text/html 07.24.23 Office N [...] the right upper extremity. 07.27.23 CT @ [facility] of RIGHT lower extremity -FINDINGS: Comminuted mildly [...] fracture greater tuberosity humerus. FANI MARIE DO [email or web address] [facility],[address], [place], [address], [facility] - [facility] & [facility] 07/31/2023 12:30:43 08/10/2023 text/html Patient here tod ay for 3 week follow up comminuted mildly displaced fracture greater tuberosity humerus. Had CT of right extremity at [facility] 07/27/23 which revealed above. Is wearing sling and utilizing Ibuprofen for pain which she states takes the edge off. Pain is more prominent at night. Reports ROM is slightly improving. 2v right shoulder today in office. [id number] FANI MARIE DO [address] [place] [address],[address], [place], [address], [place] - [facility] [place] 08/10/2023 12:27:59 10/23/2023 text/html 3 months post ri ght comminuted mildly displaced fracture greater tuberosity humerusMissed last aptHas been using arm, but is not in outpatient PTPatient had a fall yesterday going down stepsPatient has had increased pain since last [email or web address] FANI MARIE DO [address] [facility] [address], [place], [address], [place] - [facility] [facility] [place] 10/23/2023 13:47:22 OBGyn Episode No OBEpisode recorded.
== END ==
PROVIDERS: PCP Family Medicine; Visit Provider Family Medicine
DX: F99 Mental disorder, not otherwise specified; G47.36 Sleep related hypoventilation in conditions classified elsewhere; F51.05 Insomnia due to other mental disorder
CPT/HCPCS: 95810

== ENCOUNTER 2025-07-12 09:32 | Outpatient (CLI) | payer OTHER, SELFPAY ==
--- OUTSIDE RECORDS SUMMARY | 2025-07-12 09:48 | XMS_ITS | Clinical Summary ---
Author Organization Healthcare Address [address] [place] [address] Care Team Providers Care Stone Dresser Name Role Phone Unavailable Primary Care Provider [...]
--- OUTSIDE RECORDS SUMMARY | 2025-07-12 09:48 | XMS_ITS | Clinical Summary ---
Author Organization [facility] DARIN Holliday T Address [address] [facility] [place] [address] Phone Care Team Providers Care Drop Tester Name Role Phone Rom Caldera MD Primary Care Provider [phone] Lyle Ponce MD Unavailable Unavailable Allergies No [...] - 2023-2 5 season) 2024 Influenza Vaccine (#1) 2025 Meningococcal B Vaccine Aged Out No l onger eligible based on patient's age to complete this topic Pneumococcal Vaccine 0-49 Aged Out No longer eligible based on patient's age to complete this topic Insurance [employer] MEDICAID MEDICAID Advance Directives For more information, please contact: [phone] Documents on File Type Date Recorded Patient Decal Maker Expl anation Advance Directives and Esther prather Will 10/13/2012 10:22 AM Power of Miniature Model Maker 10/13/2012 10:22 AM Advance Directives/DNR 10/13/2012 ADVANCE DIRECTIVE 10/13/2012 * Full Code (Latest Code Status on File) Date Activated Date Inactivated Comments 09/22/2018 3:34 PM 09/24/2018 3:39 PM Care Teams Drop Tester Relationship Specialty Start Date End Date Rom Caldera MD PCP - General Family Medicine 10/13/12 Lyle Ponce MD Internal Medicine-Rheumatology 06/28/20
[2025-07-12 10:10] VITALS: PULSE 80; PULSE 85
[2025-07-12] MEDS: ALBUTEROL 0.083% 2.5 MG/3 ML NEB IH (10:10)
== END 2025-07-12 23:59 | disposition home or self-care (01) ==
LOC: RT 09:32
PROVIDERS: PCP Family Medicine; Visit Provider Nurse Practitioner
DX: R09.02 Hypoxemia (principal); R06.02 Shortness of breath
CPT/HCPCS: 94060; 94640; 94726; 94729; 94762

== ENCOUNTER 2025-08-14 15:13 | Outpatient (CLI) | payer OTHER, SELFPAY ==
--- OUTSIDE RECORDS SUMMARY | 2025-08-14 15:15 | XMS_ITS | Clinical Summary ---
Author Organization Healthcare Address [address] [place] [address] Care Team Providers Care Associate Principal Name Role Phone Unavailable Primary Care Provider [...]
--- OUTSIDE RECORDS SUMMARY | 2025-08-14 15:15 | XMS_ITS | Clinical Summary ---
Author Organization [facility] [place] [place] DARIN Holliday T Address [address] [facility] [place] [address] Phone Care Team Providers Care Educational Psychology Professor Name Role Phone Rom Caldera MD Primary Care Provider [phone] Lyle Ponce MD Unavailable Unavailable Allergies No [...] COVID-19 Vaccine ( - 2023-2 5 season) 2025 Influenza Vaccine (#1) 2025 Meningococcal B Vaccine Aged Out No l onger eligible based on patient's age to complete this topic Pneumococcal Vaccine 0-49 Aged Out No longer eligible based on patient's age to complete this topic Insurance [employer] Member Subscriber Plan / Payer (Ef fective 2018-Present) Name:Keyanna Powell Relation to Subscriber:Self Name:Keyanna Powell Payer ID:Not on file Group ID:Not on file Type:Not on file Address: [place] [id number] [facility] [address] [facility] [facility] [place] MEDICAID [facility] ([place] [place] MEDICAID Advance Directives For more information, please contact: [phone] Documents on File Type Date Recorded Patient Market Master Expl anation Advance Directives and Esther prather Will 10/13/2012 10:22 AM Power of Bread Slicer Machine 10/13/2012 10:22 AM Advance Directives/DNR 10/13/2012 ADVANCE DIRECTIVE 10/13/2012 * Full Code (Latest Code Status on File) Date Activated Date Inactivated Comments 09/22/2018 3:34 PM 09/24/2018 3:39 PM Care Teams Educational Psychology Professor Relationship Specialty Start Date End Date Rom Caldera MD PCP - General Family Medicine 10/13/12 Lyle Ponce MD Internal Medicine-Rheumatology 06/28/20
== END 2025-08-14 23:59 | disposition home or self-care (01) ==
LOC: LAB.DROPOF 15:13
PROVIDERS: PCP Family Medicine; Visit Provider Family Medicine
DX: F33.1 Major depressive disorder, recurrent, moderate (principal); F41.1 Generalized anxiety disorder; F41.0 Panic disorder [episodic paroxysmal anxiety]; L40.9 Psoriasis, unspecified; M19.90 Unspecified osteoarthritis, unspecified site; L98.9 Disorder of the skin and subcutaneous tissue, unspecified; M79.7 Fibromyalgia; E87.1 Hypo-osmolality and hyponatremia